=== PATIENT | female | born 1965 | race Caucasian/White ===

== ENCOUNTER 2017-06-21 15:43 | Emergency (ER) | payer OTHER ==
[2017-06-21] MEDS ORDERED: HYDROCODONE/ACETAMINOPHEN 5-325 MG TABLET PO ONE (18:18)
[2017-06-21 19:13] LABS: BILIRUBIN,URINE NEGATIVE (NEGATIVE); COLOR,URINE YELLOW; GLUCOSE, URINE NEGATIVE (NEGATIVE); KETONES,URINE NEGATIVE (NEGATIVE); LEUKOCYTE ESTERASE,URINE NEGATIVE (NEGATIVE); NITRITE,URINE NEGATIVE (NEGATIVE); PROTEIN,URINE NEGATIVE (NEGATIVE); URINE SPECIFIC GRAVITY 1.016; UROBILINOGEN,URINE NEGATIVE mg/dL (<2.0)
[2017-06-21 19:22] LABS: APPEARANCE,URINE CLEAR
[2017-06-21 19:29] VITALS: BP 130/84
--- NOTE | 2017-06-21 19:29 | ER Document Report ---
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 Patient denies any urinary complaints, denies any fevers or chills , denies any nausea vomiting or diarrhea, she denies any cauda equina concerns, she denies any red flag issues such as diabetes immunocompromised state IV drug use Patient does admit that she does a lot of bending and lifting of objects TRAVEL OUTSIDE OF THE [place] IN LAST 30 DAYS: No - HPI Onset: Last week Onset/Duration: Persistent, Worse Quality of pain: Achy Severity: Mild Pain Level: 1 Associated symptoms: Body/muscle aches Exacerbated by: Movement, Walking Relieved by: Denies Similar symptoms previously: No Recently seen / treated by doctor: No - Related Data Allergies/Adverse Reactions: Sulfa (Sulfonamide Antibiotics) Allergy (Verified 12/07/15 13:18) Past Medical History - Social History Smoking Status: Current Every Day Smoker Cigarette use (# per day): Yes Chew tobacco use (# tins/day): No Smoking Education Provided: No Frequency of alcohol use: Rare Drug Abuse: None Family History: Reviewed & Not Pertinent Patient has suicidal ideation: No Patient has homicidal ideation: No - Past Medical History Cardiac Medical History: Reports: Hx Hypercholesterolemia, Hx Hypertension Pulmonary Medical History: Reports: Hx Bronchitis, Hx COPD, Hx Pneumonia Renal/ Medical History: Denies: Hx Peritoneal Dialysis Psychiatric Medical History: Reports: Hx Depression Past Surgical History: Reports: Hx Appendectomy - 1978, Hx Section - 1995 - Immunizations Immunizations up to date: No Hx Diphtheria, Pertussis, Tetanus Vaccination: Yes Hx Pneumococcal Vaccination: 05/04/07 Review of Systems - Review of Systems Notes: REVIEW OF SYSTEMS: CONSTITUTIONAL : Denies fever, chills, or sweats. Denies recent illness. EENT: Denies eye, ear, throat, or mouth pain or symptoms. Denies nasal or sinus congestion or discharge. Denies throat, tongue, or mouth swelling or difficulty swallowing. CARDIOVASCULAR: Denies chest pain. Denies palpitations or racing or irregular heart beat. Denies ankle edema. RESPIRATORY: Denies cough, cold, or chest congestion. Denies shortness of breath, difficulty breathing, or wheezing. GASTROINTESTINAL: Admits to bilateral flank pain GENITOURINARY: Denies difficulty urinating, painful urination, burning, frequency, blood in urine, or discharge. FEMALE GENITOURINARY: Denies vaginal bleeding, heavy or abnormal periods, irregular periods. Denies vaginal discharge or odor. MUSCULOSKELETAL: Denies back or neck pain or stiffness. Denies joint pain or swelling. SKIN: Denies rash, lesions or sores. HEMATOLOGIC : Denies easy bruising or bleeding. LYMPHATIC: Denies swollen, enlarged glands. NEUROLOGICAL: Denies confusion or altered mental status. Denies passing out or loss of consciousness. Denies dizziness or lightheadedness. Denies headache. Denies weakness or paralysis or loss of use of either side. Denies problems with gait or speech. Denies sensory loss, numbness, or tingling. Denies seizures. PSYCHIATRIC: Denies anxiety or stress. Denies depression, suicidal ideation, or homicidal ideation. ALL OTHER SYSTEMS REVIEWED AND NEGATIVE. PHYSICAL EXAMINATION: GENERAL: Well-appearing, well-nourished and in no acute distress. HEAD: Atraumatic, normocephalic. EYES: Pupils equal round and reactive to light, extraocular movements intact, conjunctiva are normal. ENT: Nares patent, oropharynx clear without exudates. Moist mucous membranes. NECK: Normal range of motion, supple without lymphadenopathy LUNGS: Breath sounds clear to auscultation bilaterally and equal. No wheezes rales or rhonchi. HEART: Regular rate and rhythm without murmurs ABDOMEN: Soft, nontender, nondistended abdomen. No guarding, no rebound. No masses appreciated. Female : deferred Musculoskeletal: Normal range of motion, no pitting or edema. No cyanosis. Patient does have bilateral tenderness upon palpation, she has no midline tenderness, there is no signs of cauda equina concerns NEUROLOGICAL: Cranial nerves grossly intact. Normal speech, normal gait. Normal sensory, motor exams PSYCH: Normal mood, normal affect. SKIN: Warm, Dry, normal turgor, no rashes or lesions noted. Dictation was performed using [employer] recognition software Physical Exam - Vital signs Vitals: Temp Pulse Resp BP Pulse Ox 98.6 F 88 19 134/88 H 95 06/21/17 15:55 06/21/17 15:55 06/21/17 15:55 06/21/17 15:55 06/21/17 15:55 Course - Re-evaluation Re-evalutation: 06/21/17 21:08 Patient's evaluation is quite benign, she was initially given Toradol and noted minimal improvement, she was then given Maypearl which significantly improved her pain. Patient notes no acute infectious process in her urinalysis, I do not believe imaging is necessary at this time as she feels much better has normal vital signs and otherwise is afebrile. Very strict return precautions have been provided for the patient, she has no cauda equina concerns which would require further MRI imaging Work restriction has been provided for her After performing a Medical Screening Examination, I estimate there is LOW risk for EXPANDING OR RUPTURED ABDOMINAL AORTIC ANEURYSM, CAUDA EQUINA SYNDROME, EPIDURAL MASS LESION, or HERNIATED DISK CAUSING SEVERE SPINAL STENOSIS, thus I consider the discharge disposition reasonable. I have reevaluated this patient multiple times and no significant life threatening changes are noted. The patient and I have discussed the diagnosis and risks, and we agree with discharging home and close follow-up. We also discussed returning to the Emergency Department immediately if new or worsening symptoms occur with the understanding that symptoms and presentations can change. We have discussed the symptoms which are most concerning (e.g., saddle anesthesia, urinary or bowel incontinence or retention, changing or worsening pain) that necessitate immediate return. - Vital Signs Vital signs: Temp Pulse Resp BP Pulse Ox 98.6 F 67 20 130/84 H 99 06/21/17 15:55 06/21/17 19:28 06/21/17 19:28 06/21/17 19:28 06/21/17 19:28 - Laboratory Laboratory results interpreted by me: 06/21/17 17:51 Urine Blood SMALL H Discharge - Discharge Clinical Impression: Flank pain HTN (hypertension) Qualifiers: Hypertension type: essential hypertension Qualified Code(s): I10 - Essential ( primary) hypertension Condition: Stable Disposition: HOME, SELF-CARE Instructions: Low Back Pain ([facility]) Additional Instructions: Please allow for light duty no lifting greater than 5 pounds for 2 weeks Prescriptions: Hydrocodone/Acetaminophen [Maypearl 5-325 mg Tablet] 1 tab PO Q6 #15 tablet Naproxen Sodium 550 mg PO BID #20 tablet
== END 2017-06-21 19:29 | disposition home or self-care (01) ==
LOC: ER 15:43
DX: R10.9 Unspecified abdominal pain (principal); I10 Essential (primary) hypertension; J44.9 Chronic obstructive pulmonary disease, unspecified; F17.210 Nicotine dependence, cigarettes, uncomplicated; Z88.2 Allergy status to sulfonamides; Z90.49 Acquired absence of other specified parts of digestive tract
CPT/HCPCS: 81001; 99283

== ENCOUNTER 2018-02-02 16:54 | Inpatient (IN) | payer OTHER ==
[2018-02-02] MEDS ORDERED: IPRATROPIUM/ALBUTEROL 0.5-2.5 MG/3 ML AMPUL NEB ONE ×2 (17:59→20:40)
[2018-02-02] MEDS ORDERED: ALBUTEROL SULFATE 0.083% NEB 2.5 MG/3 ML AMPUL NEB ONE (18:00)
--- NOTE | 2018-02-02 18:02 | ER Document Report ---
ED Medical Screen (RME) - General Chief Complaint: Breathing Difficulty Stated Complaint: DIFFICULTY BREATHING Time Seen by Provider: 02/02/18 17:59 Mode of Arrival: Ambulatory Information source: Patient, Relative, [facility] Records Notes: 52-year-old female with COPD presents with complaint of shortness of breath, productive cough, dizziness. Patient states that she has been short of breath for 5 days. She has recently been started on doxycycline and prednisone. She states while walking into work today she became very short of breath and dizzy. Patient continues to use tobacco. I have greeted and performed a rapid initial assessment of this patient. A comprehensive ED assessment and evaluation of the patient, analysis of test results and completion of medical decision making process we will be contacted by additional ED providers. PHYSICAL EXAMINATION: Vital signs reviewed GENERAL: Well-appearing, well-nourished and in no acute distress. LUNGS: Diffuse wheezing, coarse breath sounds bilaterally Musculoskeletal: Normal range of motion NEUROLOGICAL: Normal speech, normal gait. PSYCH: Normal mood, normal affect. SKIN: Warm, Dry, normal turgor, no rashes or lesions noted. TRAVEL OUTSIDE OF THE [place] IN LAST 30 DAYS: No - HPI Onset: Other Onset/Duration: Persistent, Worse Quality of pain: Achy Associated Symptoms: Body/muscle aches, Chest pain, Chills, Cough (productive), Dizzy/lightheaded, Shortness of breath, Sweating Exacerbated by: Walking Relieved by: Denies Similar symptoms previously: Yes Recently seen / treated by doctor: Yes - Related Data Smoking: Cigarettes Frequency of alcohol use: None Drug Abuse: None Allergies/Adverse Reactions: Sulfa (Sulfonamide Antibiotics) Allergy (Verified 12/07/15 13:18) Past Medical History - Social History Chew tobacco use (# tins/day): No Frequency of alcohol use: None Drug Abuse: None - Past Medical History Cardiac Medical History: Reports: Hx Hypercholesterolemia, Hx Hypertension Pulmonary Medical History: Reports: Hx Bronchitis, Hx COPD, Hx Pneumonia Renal/ Medical History: Denies: Hx Peritoneal Dialysis Psychiatric Medical History: Reports: Hx Depression Past Surgical History: Reports: Hx Appendectomy - 1978, Hx Section - 1995 - Immunizations Immunizations up to date: No Hx Diphtheria, Pertussis, Tetanus Vaccination: Yes Physical Exam - Vital signs Vitals: Temp Pulse Resp BP Pulse Ox 98.1 F 71 22 H 134/79 H 95 02/02/18 16:59 02/02/18 16:59 02/02/18 16:59 02/02/18 16:59 02/02/18 16:59 Course - Vital Signs Vital signs: Temp Pulse Resp BP Pulse Ox 98.1 F 71 22 H 134/79 H 95 02/02/18 16:59 02/02/18 16:59 02/02/18 16:59 02/02/18 16:59 02/02/18 16:59
[2018-02-02 18:23] LABS: ABSOLUTE LYMPHOCYTES (AUTO) 1.7 10^3/uL (0.5-4.7); ABSOLUTE MONOCYTES (AUTO) 0.2 10^3/uL (0.1-1.4); ABSOLUTE NEUT (AUTO) 8.7 10^3/uL (1.7-8.2); BASOPHILS % (AUTO) 0.3 % (0-2); EOSINOPHILS % (AUTO) 0.1 % (0-6); HEMATOCRIT 42.1 % (36.0-47.0); LYMPHOCYTES % (AUTO) 16.3 % (13-45); MEAN CORPUSCULAR HEMOGLOBIN 29.2 pg (27.0-33.4); MEAN CORPUSCULAR HGB CONC 33.3 g/dL (32.0-36.0); MEAN CORPUSCULAR VOLUME 88 fl (80-97); MONOCYTES % (AUTO) 1.7 % (3-13); PLATELET COUNT 322 10^3/uL (150-450); RED CELL DISTRIBUTION WIDTH 14.4 % (11.5-14.0); SEGMENTED NEUTROPHILS % (AUTO) 81.6 % (42-78); TOTAL CELLS COUNTED % (AUTO) 100 %; WHITE BLOOD COUNT 10.7 10^3/uL (4.0-10.5)
[2018-02-02 18:47] LABS: ANION GAP 7 (5-19); BLOOD UREA NITROGEN 20 mg/dL (7-20); CALCIUM 9.3 mg/dL (8.4-10.2); CARBON DIOXIDE 27 mmol/L (22-30); CHLORIDE 108 mmol/L (98-107); GLUCOSE 121 mg/dL (75-110); POTASSIUM 4.5 mmol/L (3.6-5.0); SODIUM 142.1 mmol/L (137-145)
--- NOTE | 2018-02-02 20:02 | RADIOLOGY REPORT (SQ) ---
EXAM DESCRIPTION: CHEST 2 VIEWS COMPLETED DATE/TIME: 02/02/2018 7:45 pm REASON FOR STUDY: Cough, shortness of breath COMPARISON: 10/01/2015 EXAM PARAMETERS: NUMBER OF VIEWS: two views TECHNIQUE: Digital Frontal and Lateral radiographic views of the chest acquired. RADIATION DOSE: NA LIMITATIONS: none FINDINGS: LUNGS AND PLEURA: No opacities, masses or pneumothorax. No pleural effusion. MEDIASTINUM AND HILAR STRUCTURES: No masses or contour abnormalities. HEART AND VASCULAR STRUCTURES: Heart normal size. No evidence for failure. BONES: No acute findings. HARDWARE: None in the chest. OTHER: No other significant finding. IMPRESSION: NO ACUTE RADIOGRAPHIC FINDING IN THE CHEST. TECHNICAL DOCUMENTATION: JOB ID: [id number] [employer]- All Rights Reserved Reading location - IP/workstation name: [email or web address]
[2018-02-02] MEDS ORDERED: METHYLPREDNISOLONE INJ 125 MG/2 ML SDV IV ONE (20:40)
[2018-02-02 20:50] LABS: VENOUS BLOOD BASE EXCESS -1.5 mmol/L; VENOUS BLOOD HCO3 23.5 mmol/L (20-32); VENOUS BLOOD PH 7.38 (7.30-7.42)
--- NOTE | 2018-02-02 21:08 | ER Document Report ---
ED General - General Chief Complaint: Breathing Difficulty Stated Complaint: DIFFICULTY BREATHING Time Seen by Provider: 02/02/18 17:59 Mode of Arrival: Ambulatory Notes: Patient is a 52-year-old female with history of COPD that presents to the emergency department for chief complaint of wheezing, shortness of breath, and cough. Patient states she has been having these symptoms since this past Thursday, and have progressed since that time, she was seen by an urgent care who prescribed her doxycycline, albuterol, and prednisone, but she states she has not improved much since then, and feels more short of breath today so she decided to come to the emergency department to be evaluated. She states she has been having wheezing, and a nonproductive cough. Denies noting any chest pain, fevers, chills, night sweats, nausea, vomiting or abdominal pain. Past Medical History: COPD, hypertension Past Surgical History: Appendectomy, Social History: Admits to smoking cigarettes daily, denies alcohol or drug use Family History: Reviewed and noncontributory for presenting illness Allergies: Reviewed, see documented allergy list. REVIEW OF SYSTEMS: Unless otherwise stated in this report the patient's positive and negative responses for review of systems for constitutional, eyes, ENT, cardiovascular, respiratory, gastrointestinal, neurological, genitourinary, musculoskeletal, and integumentary systems and related systems to the presenting problem are either as stated in the HPI or were not pertinent or were negative for the symptoms and/or complaints related to the presenting medical problem. PHYSICAL EXAMINATION: Vital signs reviewed, nursing noted reviewed. GENERAL: Well-appearing, well-nourished and in no acute distress. HEAD: Atraumatic, normocephalic. EYES: Eyes appear normal, extraocular movements intact, sclera anicteric, conjunctiva are normal. ENT: nares patent, oropharynx clear without exudates. Moist mucous membranes. NECK: Normal range of motion, supple without lymphadenopathy LUNGS: Expiratory wheezing noted throughout all lung quinonez, as well as scattered rhonchi, no immediate respiratory distress, dry cough noted on exam HEART: Regular rate and rhythm without murmurs ABDOMEN: Soft, nontender, normoactive bowel sounds. No rebound, guarding, or rigidity. No masses appreciated. EXTREMITIES: Nontender, good range of motion, no pitting or edema. NEUROLOGICAL: No focal neurological deficits. Moves all extremities spontaneously Motor and sensory grossly intact on exam. PSYCH: Normal mood, normal affect. SKIN: Warm, Dry, normal turgor, no rashes or lesions noted on exposed skin TRAVEL OUTSIDE OF THE [place] IN LAST 30 DAYS: No - Related Data Allergies/Adverse Reactions: Sulfa (Sulfonamide Antibiotics) Allergy (Verified 12/07/15 13:18) Past Medical History - General Information source: Patient, Relative, [facility] - Social History Smoking Status: Current Every Day Smoker Chew tobacco use (# tins/day): No Frequency of alcohol use: None Drug Abuse: None Family History: Reviewed & Not Pertinent Patient has suicidal ideation: No Patient has homicidal ideation: No - Past Medical History Cardiac Medical History: Reports: Hx Hypercholesterolemia, Hx Hypertension Pulmonary Medical History: Reports: Hx Bronchitis, Hx COPD, Hx Pneumonia Renal/ Medical History: Denies: Hx Peritoneal Dialysis Psychiatric Medical History: Reports: Hx Depression Past Surgical History: Reports: Hx Appendectomy - 1978, Hx Section - 1995 - Immunizations Immunizations up to date: No Hx Diphtheria, Pertussis, Tetanus Vaccination: Yes Hx Pneumococcal Vaccination: 05/04/07 Physical Exam - Vital signs Vitals: Temp Pulse Resp BP Pulse Ox 98.1 F 71 22 H 134/79 H 95 02/02/18 16:59 02/02/18 16:59 02/02/18 16:59 02/02/18 16:59 02/02/18 16:59 Course - Re-evaluation Re-evalutation: Patient seen and examined vital signs reviewed. Laboratory data and imaging were ordered as appropriate for the patient's presenting symptoms and complaint, with consideration of any critical or life threatening conditions that may be associated with their obtained history and exam as noted above. Patient was treated with IV Solu-Medrol, DuoNeb breathing treatments, and IV azithromycin Results were reviewed when available and demonstrated negative chest x-ray, mild leukocytosis, likely from recent steroid use, chemistries unremarkable The patient was re-evaluated and was still having significant rhonchi, and actually noted to be borderline hypoxic 91% on room air she was placed on supplemental oxygen Evaluation was most consistent with acute exacerbation of COPD, that had failed outpatient management Results were discussed with the patient at this point after careful consideration I feel that that patient should be admitted to the hospital. This was discussed with the patient that it is in the best interest for their care to be admitted for further evaluation and management. Patient agreed with this plan of care. A call was placed to the admitted physician, Dr. Pa who graciously accepted the patient onto their service. *Note is created using voice recognition software and may contain spelling, syntax or grammatical errors. Laboratory 02/02/18 02/02/18 02/02/18 18:12 18:12 20:34 WBC 10.7 H RBC 4.80 Hgb 14.0 Hct 42.1 MCV 88 MCH 29.2 MCHC 33.3 RDW 14.4 H Plt Count 322 Seg Neutrophils % 81.6 H Lymphocytes % 16.3 Monocytes % 1.7 L Eosinophils % 0.1 Basophils % 0.3 Absolute Neutrophils 8.7 H Absolute Lymphocytes 1.7 Absolute Monocytes 0.2 Absolute Eosinophils 0.0 Absolute Basophils 0.0 VBG pH 7.38 VBG pCO2 41.0 VBG HCO3 23.5 VBG Base Excess -1.5 Sodium 142.1 Potassium 4.5 Chloride 108 H Carbon Dioxide 27 Anion Gap 7 BUN 20 Creatinine 0.73 Est GFR ( Amer) > 60 Est GFR (Non-Af Amer) > 60 Glucose 121 H Calcium 9.3 Chest X-Ray 02/02/18 18:00 IMPRESSION: NO ACUTE RADIOGRAPHIC FINDING IN THE CHEST. - Vital Signs Vital signs: Temp Pulse Resp BP Pulse Ox 98.1 F 71 22 H 134/79 H 95 02/02/18 16:59 02/02/18 16:59 02/02/18 16:59 02/02/18 16:59 02/02/18 16:59 - Laboratory Result Diagrams: 02/02/18 18:12 02/02/18 18:12 Laboratory results interpreted by me: 02/02/18 02/02/18 18:12 18:12 WBC 10.7 H RDW 14.4 H Seg Neutrophils % 81.6 H Monocytes % 1.7 L Absolute Neutrophils 8.7 H Chloride 108 H Glucose 121 H - EKG Interpretation by Me Additional EKG results interpreted by me: EKG demonstrates sinus rhythm with a ventricular rate of 71 bpm, left axis deviation, normal intervals, no evidence of acute ischemia in this EKG, compared with prior EKG from 10/01/2015 without significant change. Discharge - Discharge Clinical Impression: Acute exacerbation of chronic obstructive pulmonary disease (COPD) Condition: Stable Disposition: ADMITTED INPATIENT Admitting Provider: Hospitalist - Dr. Pa Unit Admitted: Telemetry
[2018-02-02] MEDS ORDERED: AZITHROMYCIN INJ 500 MG VIAL IV ONE ×2 (21:53→23:39)
[2018-02-02] MEDS: IPRATROPIUM/ALBUTEROL 0.5-2.5 MG/3 ML AMPUL NEB PRN (23:57)
[2018-02-03] MEDS ORDERED: NICOTINE 21 MG/24 HR PATCH.TD24 TD ONE (00:30)
[2018-02-03] MEDS ORDERED: AZITHROMYCIN 500 MG in DEXTROSE 5%-WATER 250 ML IV ONE (01:00)
[2018-02-03] MEDS ORDERED: AZITHROMYCIN INJ 500 MG VIAL IV PRN (01:47)
[2018-02-03] MEDS ORDERED: AZITHROMYCIN 500 MG in NORMAL SALINE 250 ML IV ONE (02:00)
[2018-02-03] MEDS: FAMOTIDINE 20 MG TABLET PO SCH ×3 (03:18→21:26)
[2018-02-03 05:24] LABS: HEMOGLOBIN 13.1 g/dL (12.0-15.5); MEAN CORPUSCULAR HEMOGLOBIN 29.4 pg (27.0-33.4); MEAN CORPUSCULAR HGB CONC 32.8 g/dL (32.0-36.0); MEAN CORPUSCULAR VOLUME 90 fl (80-97); PLATELET COUNT 301 10^3/uL (150-450); RED BLOOD COUNT 4.47 10^6/uL (3.72-5.28); RED CELL DISTRIBUTION WIDTH 14.3 % (11.5-14.0); WHITE BLOOD COUNT 11.6 10^3/uL (4.0-10.5)
[2018-02-03 05:26] LABS: ARTERIAL BLOOD BASE EXCESS -5.9 mmol/L; ARTERIAL BLOOD H2CO3 1.08 mmol/L (1.05-1.35); ARTERIAL BLOOD HCO3 19.1 mmol/L (20-24); ARTERIAL BLOOD O2 SATURATION 97.2 % (94-98); ARTERIAL BLOOD PCO2 35.9 mmHg (35-45); ARTERIAL BLOOD PH 7.34 (7.35-7.45); ARTERIAL BLOOD TOTAL CO2 20.2 mmol/L (21-25)
[2018-02-03 05:27] LABS: ARTERIAL BLOOD FIO2 3L
[2018-02-03 05:40] LABS: ANION GAP 12 (5-19); BLOOD UREA NITROGEN 18 mg/dL (7-20); CALCIUM 9.4 mg/dL (8.4-10.2); CARBON DIOXIDE 20 mmol/L (22-30); CHLORIDE 107 mmol/L (98-107); GLUCOSE 271 mg/dL (75-110); PHOSPHORUS 3.5 mg/dL (2.5-4.5); POTASSIUM 4.6 mmol/L (3.6-5.0); SODIUM 139.2 mmol/L (137-145)
--- NOTE | 2018-02-03 07:52 | PDOC H&P ---
History of Present Illness Admission Date/PCP: 02/02/18 21:23 Patient complains of: Shortness of breath History of Present Illness: MARILEE LAY is a 52 year old female presenting to the emergency department secondary to shortness of breath. States symptoms started on Thursday. Patient continues to smoke 1 pack of cigarettes per day daily, last cigarette yesterday when she was unable to finish. States she has been having tightness. Was seen in the outpatient setting in urgent care, started on antibiotics and given prednisone with no relief patient is to present to the ER for further workup and evaluation. Denies chest pain, denies oxygen at home. Past Medical History Cardiac Medical History: Reports: Hyperlipidema, Hypertension Pulmonary Medical History: Reports: Bronchitis, Chronic Obstructive Pulmonary Disease (COPD), Pneumonia Psychiatric Medical History: Reports: Depression Hematology: Reports: Anemia Past Surgical History Past Surgical History: Reports: Appendectomy - 1978, Section - 1995 Social History Information Source: Patient Smoking Status: Current Every Day Smoker Hx Recreational Drug Use: No Hx Prescription Drug Abuse: No Family History Family History: Reviewed & Not Pertinent Parental Family History Reviewed: No Children Family History Reviewed: No Sibling(s) Family History Reviewed.: No Medication/Allergy Home Medications: Telmisartan/Hydrochlorothiazid [Micardis HCT 40-12.5 mg Tablet] 1 each PO DAILY 04/13/11 Albuterol Sulfate [Ventolin HFA MDI 18 GM] 2 puff IH Q4HP PRN 11/10/12 Escitalopram Oxalate [Lexapro] 20 mg PO DAILY 02/02/18 Allergies/Adverse Reactions: Sulfa (Sulfonamide Antibiotics) Allergy (Verified 12/07/15 13:18) Review of Systems Constitutional: ABSENT: chills, fever(s), night sweats Nose, Mouth, and Throat: ABSENT: headache(s) Cardiovascular: ABSENT: chest pain, edema, palpitations Respiratory: PRESENT: cough, dyspnea Gastrointestinal: ABSENT: abdominal pain, diarrhea, nausea, vomiting Physical Exam Vital Signs: Temp Pulse Resp BP Pulse Ox 98.1 F 71 22 H 134/79 H 95 02/02/18 16:59 02/02/18 16:59 02/02/18 16:59 02/02/18 16:59 02/02/18 16:59 General appearance: PRESENT: no acute distress Head exam: PRESENT: atraumatic, normocephalic Eye exam: PRESENT: conjunctiva pink, EOMI, PERRLA. ABSENT: scleral icterus Mouth exam: PRESENT: moist, tongue midline Neck exam: ABSENT: carotid bruit, JVD, lymphadenopathy, thyromegaly Respiratory exam: PRESENT: decreased breath sounds, tachypnea, wheezes. ABSENT : chest wall tenderness, crackles, retraction Cardiovascular exam: PRESENT: RRR. ABSENT: diastolic murmur, rubs, systolic murmur GI/Abdominal exam: PRESENT: normal bowel sounds, soft. ABSENT: distended, guarding, mass, organolmegaly, rebound, tenderness Extremities exam: PRESENT: calf tenderness Neurological exam: PRESENT: alert, awake, oriented to person, oriented to place , oriented to time, oriented to situation, CN II-XII grossly intact. ABSENT: motor sensory deficit Psychiatric exam: PRESENT: appropriate affect, normal mood. ABSENT: homicidal ideation, suicidal ideation Skin exam: PRESENT: dry, intact, warm. ABSENT: cyanosis, rash Results Laboratory Results: 02/02/18 02/02/18 18:12 18:12 WBC 10.7 H Hgb 14.0 Sodium 142.1 Potassium 4.5 Chloride 108 H Carbon Dioxide 27 Creatinine 0.73 Impressions: Chest X-Ray 02/02/18 18:00 IMPRESSION: NO ACUTE RADIOGRAPHIC FINDING IN THE CHEST. Assessment & Plan - Diagnosis (1) Acute exacerbation of chronic obstructive pulmonary disease (COPD) Is this a current diagnosis for this admission?: Yes (2) Acute bronchitis Is this a current diagnosis for this admission?: Yes (3) Tobacco abuse Is this a current diagnosis for this admission?: Yes - Plan Summary Plan Summary: [facility] and [facility]. Continuous pulse ox monitoring overnight with supplemental oxygen as deemed necessary to maintain O2 sat between 88 and 92%. Prednisone given in emergency department, will continue Solu-Medrol 40 mg IV every 6 hours. Tylenol, ibuprofen as needed pain, fever. DuoNeb every 4 as needed. Will start patient on azithromycin for potential underlying acute bronchitis. Repeat CBC, BMP in a.m. Continue patient's home medications. We will continue to monitor closely and adjust accordingly. Smoking cessation highly encouraged. Nicotine patch provided.
[2018-02-03] MEDS: METHYLPREDNISOLONE INJ 40 MG/1 ML SDV IV SCH ×3 (09:24→21:27)
[2018-02-03] MEDS: NICOTINE 21 MG/24 HR PATCH.TD24 TD SCH (09:24)
[2018-02-03] MEDS: AZITHROMYCIN 250 MG TABLET PO SCH (09:24)
[2018-02-03] MEDS: ENOXAPARIN SODIUM INJ 40 MG/0.4 ML DISP.SYRIN SUBCUT SCH (09:25)
--- NOTE | 2018-02-03 11:12 | EKG REPORT ---
SEVERITY:- ABNORMAL ECG - SINUS RHYTHM LEFT VENTRICULAR HYPERTROPHY : Confirmed by: Schuyler Myles 03-Feb-2018 11:11:34
[2018-02-03] MEDS: IPRATROPIUM/ALBUTEROL 0.5-2.5 MG/3 ML AMPUL NEB PRN ×2 (16:12→19:44)
[2018-02-03] MEDS ORDERED: GLUCAGON,HUMAN RECOMB 1 MG INJ IM PRN (16:32)
[2018-02-03] MEDS ORDERED: DEXTROSE 40% GEL 15 GM TUBE PO PRN ×2 (16:32)
[2018-02-03] MEDS ORDERED: DEXTROSE 50%-WATER 25 GM/50 ML DISP.SYRIN IV PRN ×2 (16:32)
--- NOTE | 2018-02-03 16:40 | PDOC PROGRESS REPORT ---
Subjective Progress Note for:: 02/03/18 Subjective:: [age]-year-old female past medical history of hypertension, tobacco abuse, COPD, hyperlipidemia and anemia presented to ED on 02/03/2018 complaining of worsening shortness of breath and productive cough. Recently seen as outpatient and was given antibiotics and prednisone with no relief. Patient still smoking about 1 pack/day. Last smoke was 3 days ago. Patient states she is trying to quit. No acute events overnight. Patient still having shortness of breath with productive cough. Denies any fever, chills, nausea, vomiting, diarrhea, constipation or any urinary symptoms. Reason For Visit: DYSPNEA, COPD EXA Physical Exam Vital Signs: Temp Pulse Resp BP Pulse Ox 98.2 F 70 15 129/73 H 93 02/03/18 14:55 02/03/18 14:55 02/03/18 14:55 02/03/18 14:55 02/03/18 14:55 Pulse Oximeter Continuous Start: 02/02/18 21: 19 Freq: RTQ4 Status: Active Document 02/03/18 12:00 TPO (Rec: 02/03/18 12:01 TPO [email or web address]) Pulse Oximetry Assessment Oxygen Saturation (92-100) 95 Oxygen Flow Rate (L/min) 2 Oxygen Delivery Method Nasal Cannula Fraction of Inspired Oxygen (FIO2) 28 Equipment Usage Equipment in Use Continuous SpO2 Machine # 14 Intake & Output 02/02/18 02/03/18 02/04/18 06:59 06:59 06:59 Intake Total 638 250 Balance 638 250 Weight 94.6 kg General appearance: PRESENT: no acute distress, well-developed, well-nourished Head exam: PRESENT: atraumatic, normocephalic Eye exam: PRESENT: conjunctiva pink, EOMI, PERRLA. ABSENT: scleral icterus Ear exam: PRESENT: normal external ear exam Mouth exam: PRESENT: moist, tongue midline Neck exam: ABSENT: carotid bruit, JVD, lymphadenopathy, thyromegaly Respiratory exam: PRESENT: clear to auscultation carmen, crackles, decreased breath sounds, prolonged expiratory phas. ABSENT: rales, rhonchi, wheezes Cardiovascular exam: PRESENT: RRR. ABSENT: diastolic murmur, rubs, systolic murmur Pulses: PRESENT: normal dorsalis pedis pul Vascular exam: PRESENT: normal capillary refill GI/Abdominal exam: PRESENT: normal bowel sounds, soft. ABSENT: distended, guarding, mass, organolmegaly, rebound, tenderness Rectal exam: PRESENT: deferred Extremities exam: PRESENT: full ROM. ABSENT: calf tenderness, clubbing, pedal edema Neurological exam: PRESENT: alert, awake, oriented to person, oriented to place , oriented to time, oriented to situation, CN II-XII grossly intact. ABSENT: motor sensory deficit Psychiatric exam: PRESENT: appropriate affect, normal mood. ABSENT: homicidal ideation, suicidal ideation Skin exam: PRESENT: dry, intact, warm. ABSENT: cyanosis, rash Results Laboratory Results: 02/03/18 04:20 02/03/18 04:20 02/03/18 02/03/18 02/03/18 04:20 04:20 04:27 WBC 11.6 H RBC 4.47 Hgb 13.1 Hct 40.0 MCV 90 MCH 29.4 MCHC 32.8 RDW 14.3 H Plt Count 301 Carbonic Acid 1.08 HCO3/H2CO3 Ratio 17:1 ABG pH 7.34 L ABG pCO2 35.9 ABG pO2 98.0 ABG HCO3 19.1 L ABG O2 Saturation 97.2 ABG Base Excess -5.9 FiO2 3L Sodium 139.2 Potassium 4.6 Chloride 107 Carbon Dioxide 20 L Anion Gap 12 BUN 18 Creatinine 0.71 Est GFR ( Amer) > 60 Est GFR (Non-Af Amer) > 60 Glucose 271 H Calcium 9.4 Phosphorus 3.5 Magnesium 2.0 Impressions: Chest X-Ray 02/02/18 18:00 IMPRESSION: NO ACUTE RADIOGRAPHIC FINDING IN THE CHEST. Assessment & Plan - Diagnosis (1) Acute exacerbation of chronic obstructive pulmonary disease (COPD) Is this a current diagnosis for this admission?: Yes Plan: Azithromycin day 1/4 for possible bronchitis. Continue steroids and nebs. Follow-up cultures. (2) Tobacco abuse Is this a current diagnosis for this admission?: Yes Plan: Counseled patient extensively about the risk of continuing tobacco abuse. Patient stated that she is trying to quit. Will start on nicotine patch. (3) Diabetes Is this a current diagnosis for this admission?: Yes Plan: History of diabetes however no A1c available. Will order A1c. Continue on sliding scale insulin for the possible diabetes and also hyperglycemia caused by steroid treatment. As per review of the record patient also has hyperlipidemia however no lipid panel is available. Will order lipid panel if abnormal will start on statins. (4) Hypertension Is this a current diagnosis for this admission?: Yes Plan: Normotensive, euvolemic. Start low-dose lisinopril. Monitor vitals and adjust medication as needed. (5) Depression Is this a current diagnosis for this admission?: No Plan: Restart home meds.
[2018-02-04] MEDS: IPRATROPIUM/ALBUTEROL 0.5-2.5 MG/3 ML AMPUL NEB PRN ×2 (00:16→08:37)
[2018-02-04 05:05] LABS: ABSOLUTE LYMPHOCYTES (AUTO) 2.1 10^3/uL (0.5-4.7); ABSOLUTE MONOCYTES (AUTO) 0.5 10^3/uL (0.1-1.4); ABSOLUTE NEUT (AUTO) 15.2 10^3/uL (1.7-8.2); BASOPHILS % (AUTO) 0.2 % (0-2); HEMATOCRIT 39.4 % (36.0-47.0); LYMPHOCYTES % (AUTO) 11.8 % (13-45); MEAN CORPUSCULAR HEMOGLOBIN 28.8 pg (27.0-33.4); MEAN CORPUSCULAR VOLUME 87 fl (80-97); MONOCYTES % (AUTO) 2.7 % (3-13); PLATELET COUNT 302 10^3/uL (150-450); RED BLOOD COUNT 4.51 10^6/uL (3.72-5.28); RED CELL DISTRIBUTION WIDTH 14.4 % (11.5-14.0); SEGMENTED NEUTROPHILS % (AUTO) 85.3 % (42-78); TOTAL CELLS COUNTED % (AUTO) 100 %; WHITE BLOOD COUNT 17.8 10^3/uL (4.0-10.5)
[2018-02-04] MEDS: METHYLPREDNISOLONE INJ 40 MG/1 ML SDV IV SCH ×3 (05:24→21:30)
[2018-02-04 05:25] LABS: ALANINE AMINOTRANSFERASE 29 U/L (9-52); ALBUMIN 3.8 g/dL (3.5-5.0); ALKALINE PHOSPHATASE 101 U/L (38-126); ANION GAP 10 (5-19); ASPARTATE AMINO TRANSFERASE 11 U/L (14-36); BILIRUBIN,DIRECT 0.2 mg/dL (0.0-0.4); BILIRUBIN,TOTAL 0.2 mg/dL (0.2-1.3); BLOOD UREA NITROGEN 19 mg/dL (7-20); CALCIUM 9.6 mg/dL (8.4-10.2); CARBON DIOXIDE 23 mmol/L (22-30); CHLORIDE 109 mmol/L (98-107); CHOLESTEROL 198.55 mg/dL (0-200); GLUCOSE 161 mg/dL (75-110); POTASSIUM 4.6 mmol/L (3.6-5.0); SODIUM 142.2 mmol/L (137-145); TRIGLYCERIDES 113 mg/dL (<150)
[2018-02-04 05:36] LABS: DIRECT LDL 125 mg/dL (<100)
[2018-02-04] MEDS: AZITHROMYCIN 250 MG TABLET PO SCH (09:11)
[2018-02-04] MEDS: ESCITALOPRAM OXALATE 10 MG TABLET PO SCH (09:11)
[2018-02-04] MEDS: FAMOTIDINE 20 MG TABLET PO SCH ×2 (09:11→21:30)
[2018-02-04] MEDS: HYDROCHLOROTHIAZIDE 12.5 MG TABLET PO SCH (09:12)
[2018-02-04] MEDS: NICOTINE 21 MG/24 HR PATCH.TD24 TD SCH (09:12)
[2018-02-04] MEDS: LOSARTAN POTASSIUM 50 MG TABLET PO SCH (09:12)
[2018-02-04] MEDS: ENOXAPARIN SODIUM INJ 40 MG/0.4 ML DISP.SYRIN SUBCUT SCH (09:13)
[2018-02-04] MEDS ORDERED: LISINOPRIL 5 MG TABLET PO SCH (10:00)
[2018-02-04] MEDS ORDERED: (PENDING PHARMACY ID) (Telmisartan/Hydrochlorothiazid [Micardis Hct 40-12.5 Mg Tablet] 1 E PO SCH (10:00)
--- NOTE | 2018-02-04 11:57 | PDOC PROGRESS REPORT ---
Subjective Progress Note for:: 02/04/18 Subjective:: 52 year-old female past medical history of hypertension, tobacco abuse, COPD, hyperlipidemia and anemia presented to ED on 02/03/2018 complaining of worsening shortness of breath and productive cough. Recently seen as outpatient and was given antibiotics and prednisone with no relief. Patient still smoking about 1 pack/day. Last smoke was 3 days ago. Patient states she is trying to quit. No acute events overnight. Patient said that she feels than yesterday. She still having a productive nonbloody cough. Denies any fever, chills, nausea, vomiting, diarrhea, constipation or any urinary symptoms. Reason For Visit: DYSPNEA, COPD EXA Physical Exam Vital Signs: Temp Pulse Resp BP Pulse Ox 97.3 F 62 18 133/72 H 95 02/04/18 08:00 02/04/18 08:39 02/04/18 08:39 02/04/18 08:32 02/04/18 08:39 Pulse Oximeter Continuous Start: 02/02/18 21: 19 Freq: RTQ4 Status: Active Document 02/04/18 07:51 JDR (Rec: 02/04/18 07:52 JDR [email or web address]) Pulse Oximetry Assessment Oxygen Saturation (92-100) 94 Oxygen Delivery Method Room Air Fraction of Inspired Oxygen (FIO2) 21 Equipment Usage Equipment in Use Continuous SpO2 Machine # 14 Intake & Output 02/03/18 02/04/18 02/05/18 06:59 06:59 06:59 Intake Total 638 1463 Balance 638 1463 Weight 94.6 kg 95 kg General appearance: PRESENT: no acute distress, well-developed, well-nourished Head exam: PRESENT: atraumatic, normocephalic Eye exam: PRESENT: conjunctiva pink, EOMI, PERRLA. ABSENT: scleral icterus Ear exam: PRESENT: normal external ear exam Mouth exam: PRESENT: moist, tongue midline Neck exam: ABSENT: carotid bruit, JVD, lymphadenopathy, thyromegaly Respiratory exam: PRESENT: crackles, prolonged expiratory phas, wheezes. ABSENT : rales, rhonchi Cardiovascular exam: PRESENT: RRR. ABSENT: diastolic murmur, rubs, systolic murmur Pulses: PRESENT: normal dorsalis pedis pul Vascular exam: PRESENT: normal capillary refill GI/Abdominal exam: PRESENT: normal bowel sounds, soft. ABSENT: distended, guarding, mass, organolmegaly, rebound, tenderness Rectal exam: PRESENT: deferred Extremities exam: PRESENT: full ROM. ABSENT: calf tenderness, clubbing, pedal edema Neurological exam: PRESENT: alert, awake, oriented to person, oriented to place , oriented to time, oriented to situation, CN II-XII grossly intact. ABSENT: motor sensory deficit Psychiatric exam: PRESENT: appropriate affect, normal mood. ABSENT: homicidal ideation, suicidal ideation Skin exam: PRESENT: dry, intact, warm. ABSENT: cyanosis, rash Results Laboratory Results: 02/04/18 04:09 02/04/18 04:09 02/04/18 02/04/18 04:09 04:09 WBC 17.8 H RBC 4.51 Hgb 13.0 Hct 39.4 MCV 87 MCH 28.8 MCHC 33.0 RDW 14.4 H Plt Count 302 Seg Neutrophils % 85.3 H Lymphocytes % 11.8 L Monocytes % 2.7 L Eosinophils % 0.0 Basophils % 0.2 Absolute Neutrophils 15.2 H Absolute Lymphocytes 2.1 Absolute Monocytes 0.5 Absolute Eosinophils 0.0 Absolute Basophils 0.0 Sodium 142.2 Potassium 4.6 Chloride 109 H Carbon Dioxide 23 Anion Gap 10 BUN 19 Creatinine 0.61 Est GFR ( Amer) > 60 Est GFR (Non-Af Amer) > 60 Glucose 161 H Calcium 9.6 Total Bilirubin 0.2 AST 11 L ALT 29 Alkaline Phosphatase 101 Total Protein 7.0 Albumin 3.8 Triglycerides 113 Cholesterol 198.55 LDL Cholesterol Direct 125 H VLDL Cholesterol 23.0 HDL Cholesterol 50 Impressions: Chest X-Ray 02/02/18 18:00 IMPRESSION: NO ACUTE RADIOGRAPHIC FINDING IN THE CHEST. Assessment & Plan - Diagnosis (1) Acute exacerbation of chronic obstructive pulmonary disease (COPD) Is this a current diagnosis for this admission?: Yes Plan: Azithromycin day 2/4 for possible bronchitis. Continue steroids and nebs. Follow-up cultures. (2) Tobacco abuse Is this a current diagnosis for this admission?: Yes Plan: Counseled patient extensively about the risk of continuing tobacco abuse. Patient stated that she is trying to quit. Will start on nicotine patch. (3) Diabetes Is this a current diagnosis for this admission?: Yes Plan: Hemoglobin A1c 5.7. Patient states she was told that she is prediabetic and is not receiving any treatment for her diabetes. Blood sugar has been in the low 100s. Possibly due to steroid treatments. Continue on sliding scale insulin. (4) Hypertension Is this a current diagnosis for this admission?: Yes Plan: Euvolemic. Restart home meds. Monitor vitals (5) Depression Is this a current diagnosis for this admission?: No Plan: Restart home meds. (6) Dyslipidemia Is this a current diagnosis for this admission?: Yes Plan: ASCVD risk score is 18.1%. Will start high intensity statins. Recommend a follow-up LFTs with PCP. (7) Leukocytosis Is this a current diagnosis for this admission?: Yes Plan: This could likely be due to steroids for COPD exacerbation. Patient remains afebrile. CBC tomorrow
[2018-02-04] MEDS: INSULIN REG, HUMAN 100 UNIT/ML 3 ML VIAL (PYX) SUBCUT PRN (12:37)
[2018-02-05 04:52] LABS: MEAN CORPUSCULAR HEMOGLOBIN 29.3 pg (27.0-33.4); MEAN CORPUSCULAR HGB CONC 33.3 g/dL (32.0-36.0); MEAN CORPUSCULAR VOLUME 88 fl (80-97); PLATELET COUNT 339 10^3/uL (150-450); RED BLOOD COUNT 4.76 10^6/uL (3.72-5.28); RED CELL DISTRIBUTION WIDTH 14.3 % (11.5-14.0); WHITE BLOOD COUNT 23.4 10^3/uL (4.0-10.5)
[2018-02-05] MEDS: METHYLPREDNISOLONE INJ 40 MG/1 ML SDV IV SCH (05:11)
[2018-02-05 05:13] LABS: ALANINE AMINOTRANSFERASE 26 U/L (9-52); ALKALINE PHOSPHATASE 102 U/L (38-126); ANION GAP 12 (5-19); ASPARTATE AMINO TRANSFERASE 13 U/L (14-36); BILIRUBIN,DIRECT 0.3 mg/dL (0.0-0.4); BILIRUBIN,TOTAL 0.4 mg/dL (0.2-1.3); BLOOD UREA NITROGEN 26 mg/dL (7-20); CALCIUM 9.7 mg/dL (8.4-10.2); CARBON DIOXIDE 23 mmol/L (22-30); CHLORIDE 105 mmol/L (98-107); GLUCOSE 147 mg/dL (75-110); POTASSIUM 4.6 mmol/L (3.6-5.0); SODIUM 140.3 mmol/L (137-145); TOTAL PROTEIN 7.5 g/dL (6.3-8.2)
[2018-02-05 05:16] LABS: ABSOLUTE LYMPHOCYTES# (MANUAL) 2.3 10^3/uL (0.5-4.7); ABSOLUTE NEUTROPHILS# (MANUAL) 21.1 10^3/uL (1.7-8.2); BASOPHILS % (MANUAL) 0 % (0-2); EOSINOPHILS % (MANUAL) 0 % (0-6); LYMPHOCYTES % (MANUAL) 10 % (13-45); METAMYELOCYTES % (MANUAL) 1 % (0); MONOCYTES % (MANUAL) 0 % (3-13); SEGMENTED NEUTROPHILS % (MAN) 89 % (42-78); TOTAL CELLS COUNTED 100
[2018-02-05 05:17] LABS: PLATELET COMMENT ADEQUATE; RBC MORPHOLOGY COMMENT NORMO-CYTIC/CHROMIC; TOXIC GRANULATION 1+
[2018-02-05] MEDS ORDERED: GUAIFENESIN/CODEINE PHOS 100-10 MG/ 5 ML UDC PO PRN (08:27)
[2018-02-05] MEDS: HYDROCHLOROTHIAZIDE 12.5 MG TABLET PO SCH (09:33)
[2018-02-05] MEDS: PREDNISONE 20 MG TABLET PO SCH (09:33)
[2018-02-05] MEDS: FAMOTIDINE 20 MG TABLET PO SCH ×2 (09:33→21:06)
[2018-02-05] MEDS: ESCITALOPRAM OXALATE 10 MG TABLET PO SCH (09:33)
[2018-02-05] MEDS: NICOTINE 21 MG/24 HR PATCH.TD24 TD SCH (09:34)
[2018-02-05] MEDS: LEVOFLOXACIN 750 MG TABLET PO SCH (09:34)
[2018-02-05] MEDS: ENOXAPARIN SODIUM INJ 40 MG/0.4 ML DISP.SYRIN SUBCUT SCH (09:37)
[2018-02-05] MEDS: LOSARTAN POTASSIUM 50 MG TABLET PO SCH (09:38)
[2018-02-05] MEDS: IPRATROPIUM/ALBUTEROL 0.5-2.5 MG/3 ML AMPUL NEB PRN ×2 (10:06→16:13)
--- NOTE | 2018-02-05 10:36 | PDOC PROGRESS REPORT ---
Subjective Progress Note for:: 02/05/18 Subjective:: 52 year-old female past medical history of hypertension, tobacco abuse, COPD, hyperlipidemia and anemia presented to ED on 02/03/2018 complaining of worsening shortness of breath and productive cough. Recently seen as outpatient and was given antibiotics and prednisone with no relief. Patient still smoking about 1 pack/day. Last smoke was 3 days ago. Patient states she is trying to quit. No acute events overnight. However patient has not been able to sleep too much because of worsening productive nonbloody cough Denies any fever, chills, nausea, vomiting, diarrhea, constipation or any urinary symptoms. Reason For Visit: DYSPNEA, COPD EXA Physical Exam Vital Signs: Temp Pulse Resp BP Pulse Ox 98.1 F 78 16 120/59 L 92 02/05/18 08:00 02/05/18 10:06 02/05/18 10:06 02/05/18 08:00 02/05/18 10:06 Pulse Oximeter Continuous Start: 02/02/18 21: 19 Freq: RTQ4 Status: Active Document 02/05/18 10:06 [facility] (Rec: 02/05/18 10:10 [facility] [email or web address]) Pulse Oximetry Assessment Oxygen Saturation (92-100) 92 Oxygen Delivery Method Room Air Fraction of Inspired Oxygen (FIO2) 21 Equipment Usage Equipment in Use Continuous SpO2 Machine # 14 Intake & Output 02/04/18 02/05/18 02/06/18 06:59 06:59 06:59 Intake Total 1463 1212 Balance 1463 1212 Weight 95 kg 93.2 kg General appearance: PRESENT: no acute distress, well-developed, well-nourished Head exam: PRESENT: atraumatic, normocephalic Eye exam: PRESENT: conjunctiva pink, EOMI, PERRLA. ABSENT: scleral icterus Ear exam: PRESENT: normal external ear exam Mouth exam: PRESENT: moist, tongue midline Neck exam: ABSENT: carotid bruit, JVD, lymphadenopathy, thyromegaly Respiratory exam: PRESENT: crackles, decreased breath sounds, prolonged expiratory phas, wheezes. ABSENT: rales, rhonchi Cardiovascular exam: PRESENT: RRR. ABSENT: diastolic murmur, rubs, systolic murmur Pulses: PRESENT: normal dorsalis pedis pul Vascular exam: PRESENT: normal capillary refill GI/Abdominal exam: PRESENT: normal bowel sounds, soft. ABSENT: distended, guarding, mass, organolmegaly, rebound, tenderness Rectal exam: PRESENT: deferred Extremities exam: PRESENT: full ROM. ABSENT: calf tenderness, clubbing, pedal edema Neurological exam: PRESENT: alert, awake, oriented to person, oriented to place , oriented to time, oriented to situation, CN II-XII grossly intact. ABSENT: motor sensory deficit Psychiatric exam: PRESENT: appropriate affect, normal mood. ABSENT: homicidal ideation, suicidal ideation Skin exam: PRESENT: dry, intact, warm. ABSENT: cyanosis, rash Results Laboratory Results: 02/05/18 03:46 02/05/18 03:46 02/05/18 02/05/18 03:46 03:46 WBC 23.4 H RBC 4.76 Hgb 14.0 Hct 42.0 MCV 88 MCH 29.3 MCHC 33.3 RDW 14.3 H Plt Count 339 Seg Neutrophils % Not Reportable Lymphocytes % Not Reportable Monocytes % Not Reportable Eosinophils % Not Reportable Basophils % Not Reportable Absolute Neutrophils Not Reportable Absolute Lymphocytes Not Reportable Absolute Monocytes Not Reportable Absolute Eosinophils Not Reportable Absolute Basophils Not Reportable Sodium 140.3 Potassium 4.6 Chloride 105 Carbon Dioxide 23 Anion Gap 12 BUN 26 H Creatinine 0.71 Est GFR ( Amer) > 60 Est GFR (Non-Af Amer) > 60 Glucose 147 H Calcium 9.7 Total Bilirubin 0.4 AST 13 L ALT 26 Alkaline Phosphatase 102 Total Protein 7.5 Albumin 4.0 Impressions: Chest X-Ray 02/02/18 18:00 IMPRESSION: NO ACUTE RADIOGRAPHIC FINDING IN THE CHEST. Assessment & Plan - Diagnosis (1) Acute exacerbation of chronic obstructive pulmonary disease (COPD) Is this a current diagnosis for this admission?: Yes Plan: Switch azithromycin to levofloxacin 500 mg daily. Day 1 of levofloxacin. She received total of 2 days of azithromycin however symptoms and labs did not improve. Continue steroids and nebs. Follow-up cultures. (2) Tobacco abuse Is this a current diagnosis for this admission?: Yes Plan: Counseled patient extensively about the risk of continuing tobacco abuse. Patient stated that she is trying to quit. Will start on nicotine patch. (3) Diabetes Is this a current diagnosis for this admission?: Yes Plan: Hemoglobin A1c 5.7. Patient states she was told that she is prediabetic and is not receiving any treatment for her diabetes. Blood sugar has been in the low 100s. Possibly due to steroid treatments. Continue on sliding scale insulin. (4) Hypertension Is this a current diagnosis for this admission?: Yes Plan: Euvolemic. Restart home meds. Monitor vitals (5) Depression Is this a current diagnosis for this admission?: No Plan: Restart home meds. (6) Dyslipidemia Is this a current diagnosis for this admission?: Yes Plan: ASCVD risk score is 18.1%. Will start high intensity statins. Recommend a follow-up LFTs with PCP. (7) Leukocytosis Is this a current diagnosis for this admission?: Yes Plan: Worsening leukocytosis could possibly be due to steroid treatment for COPD exacerbation or an underlying infection. Switch azithromycin to levofloxacin. Blood and sputum cultures remain negative. (8) Acute bronchitis Qualifiers: Bronchitis organism: unspecified organism Qualified Code(s): J20.9 - Acute bronchitis, unspecified Is this a current diagnosis for this admission?: Yes Plan: Not improving. Switch azithromycin to levofloxacin. Started on codeine/ guaifenesin. (9) Obesity (BMI 30.0-34.9) Is this a current diagnosis for this admission?: Yes Plan: Diet and lifestyle modification.
[2018-02-05] MEDS: INSULIN REG, HUMAN 100 UNIT/ML 3 ML VIAL (PYX) SUBCUT PRN (11:38)
[2018-02-05 12:44] LABS: B INFLUENZA AG NEGATIVE (NEGATIVE)
[2018-02-05 12:45] LABS: A TYPE INFLUENZA AG NEGATIVE (NEGATIVE)
[2018-02-05] MEDS: SALMETEROL XINAFOATE DISKUS 50 MCG/1 DOSE 28 DOSE IH SCH (21:06)
[2018-02-06] MEDS: IPRATROPIUM/ALBUTEROL 0.5-2.5 MG/3 ML AMPUL NEB PRN ×2 (08:45→17:02)
[2018-02-06] MEDS ORDERED: INSULIN LISPRO 100 UNIT/ML 3 ML VIAL SUBCUT PRN (09:00)
[2018-02-06] MEDS ORDERED: DEXTROSE 40% GEL 15 GM TUBE PO PRN ×2 (09:00)
[2018-02-06] MEDS ORDERED: DEXTROSE 50%-WATER 25 GM/50 ML DISP.SYRIN IV PRN ×2 (09:00)
[2018-02-06] MEDS ORDERED: GLUCAGON,HUMAN RECOMB 1 MG INJ IM PRN (09:00)
--- NOTE | 2018-02-06 09:00 | PDOC PROGRESS REPORT ---
Subjective Progress Note for:: 02/06/18 Subjective:: 52 year-old female past medical history of hypertension, tobacco abuse, COPD, hyperlipidemia and anemia presented to ED on 02/03/2018 complaining of worsening shortness of breath and productive cough. Recently seen as outpatient and was given antibiotics and prednisone with no relief. Patient still smoking about 1 pack/day. Last smoke was 3 days ago. Patient states she is trying to quit. No acute events overnight. Upon my encounter patient is sitting in bed stating that she had a better night tonight. Her cough has improved. She denies any fever, chills, chest pain, shortness of breath, nausea, vomiting, abdominal pain , diarrhea, constipation or any urinary symptoms. Reason For Visit: DYSPNEA, COPD Physical Exam Vital Signs: Temp Pulse Resp BP Pulse Ox 97.8 F 73 16 120/62 94 02/06/18 08:00 02/06/18 08:00 02/06/18 08:00 02/06/18 08:00 02/06/18 08:00 Pulse Oximeter Continuous Start: 02/02/18 21: 19 Freq: RTQ4 Status: Complete Document 02/06/18 04:10 SFL (Rec: 02/06/18 04:11 SFL [email or web address]) Pulse Oximetry Assessment Oxygen Saturation (92-100) 95 Oxygen Delivery Method Room Air Fraction of Inspired Oxygen (FIO2) 21 Equipment Usage Equipment in Use Continuous SpO2 Machine # 14 Intake & Output 02/05/18 02/06/18 02/07/18 06:59 06:59 06:59 Intake Total 1723 Balance 1723 Weight 92.5 kg Results Impressions: Chest X-Ray 02/02/18 18:00 IMPRESSION: NO ACUTE RADIOGRAPHIC FINDING IN THE CHEST. Assessment & Plan - Diagnosis (1) Acute exacerbation of chronic obstructive pulmonary disease (COPD) Is this a current diagnosis for this admission?: Yes Plan: Switch azithromycin to levofloxacin 500 mg daily. Day day 2 of levofloxacin. She received total of 2 days of azithromycin however symptoms and labs did not improve. Continue steroids and nebs. Cultures negative so far. (2) Tobacco abuse Is this a current diagnosis for this admission?: Yes Plan: Counseled patient extensively about the risk of continuing tobacco abuse. Patient stated that she is trying to quit. Started on nicotine patch. (3) Diabetes Qualifiers: Diabetes mellitus type: type 2 Is this a current diagnosis for this admission?: Yes Plan: Hemoglobin A1c 5.7. Patient states she was told that she is prediabetic and is not receiving any treatment for her diabetes. Blood glucose levels between 100-200. This could possibly be due to steroids that she is receiving for her COPD exacerbation. Continue Accu-Chek and sliding scale. (4) Hypertension Is this a current diagnosis for this admission?: Yes Plan: Euvolemic and normotensive. Continue ARB. Monitor vitals. Adjust medications as needed. (5) Depression Is this a current diagnosis for this admission?: No Plan: Denies any SI/HI. Continue SSRIs. (6) Dyslipidemia Is this a current diagnosis for this admission?: Yes Plan: ASCVD risk score is 18.1%. Started on a high intensity statins. Recommend a follow-up LFTs with PCP. (7) Leukocytosis Is this a current diagnosis for this admission?: Yes Plan: Worsening leukocytosis could possibly be due to steroid treatment for COPD exacerbation or an underlying infection. Switch azithromycin to levofloxacin. Blood and sputum cultures remain negative. (8) Acute bronchitis Qualifiers: Bronchitis organism: unspecified organism Qualified Code(s): J20.9 - Acute bronchitis, unspecified Is this a current diagnosis for this admission?: Yes Plan: Improving. Switch azithromycin to levofloxacin. Started on codeine/ guaifenesin. (9) Obesity (BMI 30.0-34.9) Is this a current diagnosis for this admission?: Yes Plan: Diet and lifestyle modification.
[2018-02-06] MEDS: ENOXAPARIN SODIUM INJ 40 MG/0.4 ML DISP.SYRIN SUBCUT SCH (10:39)
[2018-02-06] MEDS: LOSARTAN POTASSIUM 50 MG TABLET PO SCH (10:40)
[2018-02-06] MEDS: ESCITALOPRAM OXALATE 10 MG TABLET PO SCH (10:40)
[2018-02-06] MEDS: HYDROCHLOROTHIAZIDE 12.5 MG TABLET PO SCH (10:40)
[2018-02-06] MEDS: PREDNISONE 20 MG TABLET PO SCH (10:41)
[2018-02-06] MEDS: NICOTINE 21 MG/24 HR PATCH.TD24 TD SCH (10:41)
[2018-02-06] MEDS: FAMOTIDINE 20 MG TABLET PO SCH ×2 (10:41→21:09)
[2018-02-06] MEDS: LEVOFLOXACIN 750 MG TABLET PO SCH (10:44)
[2018-02-06] MEDS: TIOTROPIUM BROMIDE DPI 5 CAP/KIT (18 MCG/CAP) IH SCH (10:44)
[2018-02-06] MEDS: SALMETEROL XINAFOATE DISKUS 50 MCG/1 DOSE 28 DOSE IH SCH ×2 (10:45→21:10)
[2018-02-06 11:15] LABS: HEMATOCRIT 41.3 % (36.0-47.0); HEMOGLOBIN 13.7 g/dL (12.0-15.5); MEAN CORPUSCULAR HEMOGLOBIN 28.6 pg (27.0-33.4); MEAN CORPUSCULAR HGB CONC 33.2 g/dL (32.0-36.0); MEAN CORPUSCULAR VOLUME 86 fl (80-97); PLATELET COUNT 306 10^3/uL (150-450); RED BLOOD COUNT 4.79 10^6/uL (3.72-5.28); RED CELL DISTRIBUTION WIDTH 14.2 % (11.5-14.0); WHITE BLOOD COUNT 21.8 10^3/uL (4.0-10.5)
[2018-02-06 11:29] LABS: ABSOLUTE LYMPHOCYTES# (MANUAL) 9.6 10^3/uL (0.5-4.7); ABSOLUTE MONOCYTES # (MANUAL) 0.4 10^3/uL (0.1-1.4); ABSOLUTE NEUTROPHILS# (MANUAL) 11.8 10^3/uL (1.7-8.2); BASOPHILS % (MANUAL) 0 % (0-2); EOSINOPHILS % (MANUAL) 0 % (0-6); LYMPHOCYTES % (MANUAL) 44 % (13-45); MONOCYTES % (MANUAL) 2 % (3-13); SEGMENTED NEUTROPHILS % (MAN) 54 % (42-78); TOTAL CELLS COUNTED 100
[2018-02-06 11:30] LABS: ANISOCYTOSIS SLIGHT; PLATELET CLUMPS PRESENT; PLATELET COMMENT ADEQUATE; TOXIC GRANULATION 1+
[2018-02-06 11:35] LABS: ALANINE AMINOTRANSFERASE 30 U/L (9-52); ALBUMIN 3.5 g/dL (3.5-5.0); ALKALINE PHOSPHATASE 87 U/L (38-126); ANION GAP 8 (5-19); ASPARTATE AMINO TRANSFERASE 18 U/L (14-36); BILIRUBIN,DIRECT 0.3 mg/dL (0.0-0.4); BILIRUBIN,TOTAL 0.3 mg/dL (0.2-1.3); BLOOD UREA NITROGEN 37 mg/dL (7-20); CALCIUM 9.5 mg/dL (8.4-10.2); CARBON DIOXIDE 27 mmol/L (22-30); CHLORIDE 105 mmol/L (98-107); GLUCOSE 87 mg/dL (75-110); POTASSIUM 3.5 mmol/L (3.6-5.0); SODIUM 139.6 mmol/L (137-145); TOTAL PROTEIN 6.7 g/dL (6.3-8.2)
[2018-02-06] MEDS ORDERED: ATORVASTATIN CALCIUM 40 MG TABLET PO SCH (22:00)
[2018-02-07 05:30] LABS: ABSOLUTE LYMPHOCYTES (AUTO) 7.2 10^3/uL (0.5-4.7); ABSOLUTE MONOCYTES (AUTO) 0.9 10^3/uL (0.1-1.4); BASOPHILS % (AUTO) 0.1 % (0-2); EOSINOPHILS % (AUTO) 0.2 % (0-6); HEMOGLOBIN 13.7 g/dL (12.0-15.5); LYMPHOCYTES % (AUTO) 37.4 % (13-45); MEAN CORPUSCULAR HEMOGLOBIN 29.2 pg (27.0-33.4); MEAN CORPUSCULAR HGB CONC 33.4 g/dL (32.0-36.0); MEAN CORPUSCULAR VOLUME 87 fl (80-97); MONOCYTES % (AUTO) 4.6 % (3-13); PLATELET COUNT 303 10^3/uL (150-450); RED BLOOD COUNT 4.69 10^6/uL (3.72-5.28); RED CELL DISTRIBUTION WIDTH 14.4 % (11.5-14.0); SEGMENTED NEUTROPHILS % (AUTO) 57.7 % (42-78); TOTAL CELLS COUNTED % (AUTO) 100 %; WHITE BLOOD COUNT 19.2 10^3/uL (4.0-10.5)
[2018-02-07 05:54] LABS: ALANINE AMINOTRANSFERASE 46 U/L (9-52); ALBUMIN 3.4 g/dL (3.5-5.0); ALKALINE PHOSPHATASE 97 U/L (38-126); ANION GAP 10 (5-19); ASPARTATE AMINO TRANSFERASE 19 U/L (14-36); BILIRUBIN,DIRECT 0.4 mg/dL (0.0-0.4); BILIRUBIN,TOTAL 0.4 mg/dL (0.2-1.3); BLOOD UREA NITROGEN 32 mg/dL (7-20); CALCIUM 9.1 mg/dL (8.4-10.2); CARBON DIOXIDE 25 mmol/L (22-30); CHLORIDE 103 mmol/L (98-107); GLUCOSE 142 mg/dL (75-110); POTASSIUM 3.7 mmol/L (3.6-5.0); SODIUM 137.9 mmol/L (137-145); TOTAL PROTEIN 6.4 g/dL (6.3-8.2)
[2018-02-07] MEDS: ESCITALOPRAM OXALATE 10 MG TABLET PO SCH (09:11)
[2018-02-07] MEDS: PREDNISONE 20 MG TABLET PO SCH (09:11)
[2018-02-07] MEDS: FAMOTIDINE 20 MG TABLET PO SCH (09:11)
[2018-02-07] MEDS: LEVOFLOXACIN 750 MG TABLET PO SCH (09:11)
[2018-02-07] MEDS: HYDROCHLOROTHIAZIDE 12.5 MG TABLET PO SCH (09:12)
[2018-02-07] MEDS: ENOXAPARIN SODIUM INJ 40 MG/0.4 ML DISP.SYRIN SUBCUT SCH (09:14)
[2018-02-07] MEDS: LOSARTAN POTASSIUM 50 MG TABLET PO SCH (09:14)
[2018-02-07] MEDS: NICOTINE 21 MG/24 HR PATCH.TD24 TD SCH (09:14)
[2018-02-07] MEDS: SALMETEROL XINAFOATE DISKUS 50 MCG/1 DOSE 28 DOSE IH SCH (09:15)
[2018-02-07] MEDS: TIOTROPIUM BROMIDE DPI 5 CAP/KIT (18 MCG/CAP) IH SCH (09:15)
--- NOTE | 2018-02-07 11:09 | PDOC DISCHARGE SUMMARY ---
General - Admit/Disc Date/PCP Admission Date/Primary Care Provider: 02/05/18 12:24 Discharge Date: 02/07/18 - Discharge Diagnosis (1) Acute exacerbation of chronic obstructive pulmonary disease (COPD) Is this a current diagnosis for this admission?: Yes (2) Pneumonia Is this a current diagnosis for this admission?: Yes (3) Tobacco abuse Is this a current diagnosis for this admission?: Yes (4) Diabetes Is this a current diagnosis for this admission?: Yes (5) Hypertension Is this a current diagnosis for this admission?: Yes (6) Depression Is this a current diagnosis for this admission?: No (7) Dyslipidemia Is this a current diagnosis for this admission?: Yes (8) Leukocytosis Is this a current diagnosis for this admission?: Yes (9) Acute bronchitis Is this a current diagnosis for this admission?: Yes (10) Obesity (BMI 30.0-34.9) Is this a current diagnosis for this admission?: Yes - Additional Information Discharge Diet: As Tolerated Discharge Activity: Activity As Tolerated Prescriptions: Atorvastatin Calcium [Lipitor 40 mg Tablet] 40 mg PO QHS 30 Days #30 tablet Famotidine [Pepcid 20 mg Tablet] 20 mg PO Q12 4 Days #80 tablet Guaifenesin/Codeine Phos [Robitussin-AC Liquid 5 ml Udcup] 5 ml PO QIDP PRN 3 Days #12 udc PRN Reason: Levofloxacin [Levaquin 750 mg Tablet] 750 mg PO DAILY 4 Days #4 tablet Prednisone [Deltasone 20 mg Tablet] 40 mg PO DAILY 3 Days #3 tablet Salmeterol Xinafoate [Serevent Diskus 50 Mcg/Dose 28 Dose/Diskus] 50 mcg IH Q12 30 Days #3 disk Tiotropium [place] [Spiriva Handihaler 5 Cap/Kit (18 Mcg/Cap)] 1 cap IH DAILY 30 Days #3 kit Home Medications: Telmisartan/Hydrochlorothiazid [Micardis HCT 40-12.5 mg Tablet] 1 each PO DAILY 04/13/11 Albuterol Sulfate [Ventolin HFA MDI 18 GM] 2 puff IH Q4HP PRN 11/10/12 Escitalopram Oxalate [Lexapro] 20 mg PO DAILY 02/02/18 Atorvastatin Calcium [Lipitor 40 mg Tablet] 40 mg PO QHS 30 Days #30 tablet 11/18 Famotidine [Pepcid 20 mg Tablet] 20 mg PO Q12 4 Days #80 tablet 02/07/18 Guaifenesin/Codeine Phos [Robitussin-AC Liquid 5 ml Udcup] 5 ml PO QIDP PRN 3 Days #12 udc 02/07/18 Levofloxacin [Levaquin 750 mg Tablet] 750 mg PO DAILY 4 Days #4 tablet 02/07/18 Prednisone [Deltasone 20 mg Tablet] 40 mg PO DAILY 3 Days #3 tablet 02/07/18 Salmeterol Xinafoate [Serevent Diskus 50 Mcg/Dose 28 Dose/Diskus] 50 mcg IH Q12 30 Days #3 disk 02/07/18 Tiotropium [place] [Spiriva Handihaler 5 Cap/Kit (18 Mcg/Cap)] 1 cap IH DAILY 30 Days #3 kit 02/07/18 History of Present Illness Patient complains of: Shortness of breath, productive cough. History of Present Illness: MARILEE LAY is a 52 year old female past medical history of hypertension, tobacco abuse, COPD, hyperlipidemia and anemia presented to ED on 02/03/2018 complaining of worsening shortness of breath and productive cough. Recently seen as outpatient and was given antibiotics and prednisone with no relief. Patient still smoking about 1 pack/day. Last smoke was 3 days ago. Patient states she is trying to quit. No acute events overnight. Upon my encounter patient is sitting in bed stating that she had a better night tonight. Her cough has improved. She denies any fever, chills, chest pain, shortness of breath, nausea, vomiting, abdominal pain , diarrhea, constipation or any urinary symptoms. Hospital Course Hospital Course: (1) Acute exacerbation of chronic obstructive pulmonary disease (COPD) Azithromycin was switched to levofloxacin. Antibiotics day 3/7. She received total of 2 days of azithromycin however symptoms and labs did not improve. Day 3/5 of nebs. Started on LABA/LAMA with as needed albuterol. (2) Pneumonia Community-acquired. Patient did not respond to azithromycin. Was switched to levofloxacin. To receive a total of 7 days. (3) Tobacco abuse Counseled patient extensively about the risk of continuing tobacco abuse. Patient stated that she is trying to quit. Started on nicotine patch. (4) Diabetes Hemoglobin A1c 5.7. Patient states she was told that she is prediabetic and is not receiving any treatment for her diabetes. Blood glucose levels between 100-200. This could possibly be due to steroids that she is receiving for her COPD exacerbation. Continue Accu-Chek and sliding scale. Outpatient PCP follow-up. (5) Hypertension Euvolemic and normotensive. Continue ARB. Restart home medication on discharge. Follow-up with PCP. (6) Depression Denies any SI/HI. Continue SSRIs. (7) Dyslipidemia ASCVD risk score is 18.1%. Started on a high intensity statins. Discharged on high intensity statins. Follow-up with PCP for evaluation of LFT. (8) Leukocytosis Improved. Likely be due to steroid treatment for COPD exacerbation or an underlying infection. Switch azithromycin to levofloxacin. Blood and sputum cultures remain negative. (9) Acute bronchiti/Pneumonia Improving. Switch azithromycin to levofloxacin. Started on codeine/ guaifenesin. (10) Obesity (BMI 30.0-34.9) Diet and lifestyle modification. Physical Exam Vital Signs: Temp Pulse Resp BP Pulse Ox 98.2 F 75 16 108/65 97 02/07/18 04:23 02/07/18 08:00 02/07/18 08:00 02/07/18 04:23 02/07/18 08:00 Pulse Oximeter Continuous Start: 02/02/18 21: 19 Freq: RTQ4 Status: Complete Document 02/06/18 04:10 SFL (Rec: 02/06/18 04:11 [facility] [id number]) Pulse Oximetry Assessment Oxygen Saturation (92-100) 95 Oxygen Delivery Method Room Air Fraction of Inspired Oxygen (FIO2) 21 Equipment Usage Equipment in Use Continuous SpO2 Machine # 14 Intake & Output 02/06/18 02/07/18 02/08/18 06:59 06:59 06:59 Intake Total 1723 1910 Balance 1723 1910 Weight 92.5 kg 92.5 kg General appearance: PRESENT: no acute distress, well-developed, well-nourished Head exam: PRESENT: atraumatic, normocephalic Eye exam: PRESENT: conjunctiva pink, EOMI, PERRLA. ABSENT: scleral icterus Ear exam: PRESENT: normal external ear exam Mouth exam: PRESENT: moist, tongue midline Neck exam: ABSENT: carotid bruit, JVD, lymphadenopathy, thyromegaly Respiratory exam: PRESENT: clear to auscultation carmen. ABSENT: rales, rhonchi, wheezes Cardiovascular exam: PRESENT: RRR. ABSENT: diastolic murmur, rubs, systolic murmur Pulses: PRESENT: normal dorsalis pedis pul Vascular exam: PRESENT: normal capillary refill GI/Abdominal exam: PRESENT: normal bowel sounds, soft. ABSENT: distended, guarding, mass, organolmegaly, rebound, tenderness Rectal exam: PRESENT: deferred Extremities exam: PRESENT: full ROM. ABSENT: calf tenderness, clubbing, pedal edema Neurological exam: PRESENT: alert, awake, oriented to person, oriented to place , oriented to time, oriented to situation, CN II-XII grossly intact. ABSENT: motor sensory deficit Psychiatric exam: PRESENT: appropriate affect, normal mood. ABSENT: homicidal ideation, suicidal ideation Skin exam: PRESENT: dry, intact, warm. ABSENT: cyanosis, rash Results Laboratory Results: 02/07/18 03:46 02/07/18 03:46 02/06/18 02/06/18 02/07/18 10:19 10:19 03:46 WBC 21.8 H 19.2 H RBC 4.79 4.69 Hgb 13.7 13.7 Hct 41.3 41.0 MCV 86 87 MCH 28.6 29.2 MCHC 33.2 33.4 RDW 14.2 H 14.4 H Plt Count 306 303 Seg Neutrophils % Not Reportable 57.7 Lymphocytes % Not Reportable 37.4 Monocytes % Not Reportable 4.6 Eosinophils % Not Reportable 0.2 Basophils % Not Reportable 0.1 Absolute Neutrophils Not Reportable 11.0 H Absolute Lymphocytes Not Reportable 7.2 H Absolute Monocytes Not Reportable 0.9 Absolute Eosinophils Not Reportable 0.0 Absolute Basophils Not Reportable 0.0 Sodium 139.6 Potassium 3.5 L Chloride 105 Carbon Dioxide 27 Anion Gap 8 BUN 37 H Creatinine 0.87 Est GFR ( Amer) > 60 Est GFR (Non-Af Amer) > 60 Glucose 87 Calcium 9.5 Total Bilirubin 0.3 AST 18 ALT 30 Alkaline Phosphatase 87 Total Protein 6.7 Albumin 3.5 02/07/18 03:46 WBC RBC Hgb Hct MCV MCH MCHC RDW Plt Count Seg Neutrophils % Lymphocytes % Monocytes % Eosinophils % Basophils % Absolute Neutrophils Absolute Lymphocytes Absolute Monocytes Absolute Eosinophils Absolute Basophils Sodium 137.9 Potassium 3.7 Chloride 103 Carbon Dioxide 25 Anion Gap 10 BUN 32 H Creatinine 0.77 Est GFR ( Amer) > 60 Est GFR (Non-Af Amer) > 60 Glucose 142 H Calcium 9.1 Total Bilirubin 0.4 AST 19 ALT 46 Alkaline Phosphatase 97 Total Protein 6.4 Albumin 3.4 L Impressions: Chest X-Ray 02/02/18 18:00 IMPRESSION: NO ACUTE RADIOGRAPHIC FINDING IN THE CHEST. Qualifiers - * PATIENT BEING DISCHARGED WITH ANY OF THE FOLLOWING DIAGNOSIS: No VTE patient discharged on overlapping Therapy?: Yes
[2018-02-07 13:58] VITALS: BP 106/77
== END 2018-02-07 14:04 | disposition home or self-care (01) | DRG 190 ==
LOC: ER 16:54 → INTOOBSV 21:23 → EH 21:23 → 5 22:58 → OBSVTOIN 02-05 12:24
PROVIDERS: ADMIT Family Medicine; ATTEND Family Medicine
DX: J44.1 Chronic obstructive pulmonary disease with (acute) exacerbation (principal); J18.9 Pneumonia, unspecified organism; J44.0 Chronic obstructive pulmonary disease with (acute) lower respiratory infection; J20.9 Acute bronchitis, unspecified; E11.9 Type 2 diabetes mellitus without complications; F32.9 Major depressive disorder, single episode, unspecified; E87.5 Hyperkalemia; E66.9 Obesity, unspecified; Z68.36 Body mass index [BMI] 36.0-36.9, adult; D64.9 Anemia, unspecified; D72.829 Elevated white blood cell count, unspecified; Z90.49 Acquired absence of other specified parts of digestive tract; I10 Essential (primary) hypertension; Z88.2 Allergy status to sulfonamides; F17.210 Nicotine dependence, cigarettes, uncomplicated; Z88.6 Allergy status to analgesic agent; Z23 Encounter for immunization
CPT/HCPCS: 36415; 36600; 71046; 80048; 80053; 80061; 82803; 82962; 83036; 83735; 84100; 85025; 85027; 87070; 87804; 87880; 90471; 90686; 93005; 93010; 94640; 94762; 94799; 96374; 99285; G0008; G0378; J0456; J1650; J1815; J2920; J2930; J3490; J7050; J7060; J7512; J7620

== ENCOUNTER 2019-06-01 03:25 | Emergency (ER) | payer SELFPAY ==
[2019-06-01] MEDS ORDERED: IPRATROPIUM/ALBUTEROL 0.5-2.5 MG/3 ML AMPUL NEB ONE (04:50)
[2019-06-01] MEDS ORDERED: METHYLPREDNISOLONE INJ 125 MG/2 ML SDV IV ONE (04:50)
[2019-06-01 04:51] LABS: ABSOLUTE BASOPHILS # (AUTO) 0.1 10^3/uL (0.0-0.2); ABSOLUTE EOSINOPHILS # (AUTO) 0.4 10^3/uL (0.0-0.6); ABSOLUTE LYMPHOCYTES (AUTO) 6.2 10^3/uL (0.5-4.7); ABSOLUTE MONOCYTES (AUTO) 0.9 10^3/uL (0.1-1.4); ABSOLUTE NEUT (AUTO) 8.1 10^3/uL (1.7-8.2); BASOPHILS % (AUTO) 0.9 % (0-2); EOSINOPHILS % (AUTO) 2.7 % (0-6); HEMATOCRIT 41.9 % (36.0-47.0); HEMOGLOBIN 13.8 g/dL (12.0-15.5); LYMPHOCYTES % (AUTO) 39.2 % (13-45); MEAN CORPUSCULAR HEMOGLOBIN 29.3 pg (27.0-33.4); MEAN CORPUSCULAR HGB CONC 32.9 g/dL (32.0-36.0); MEAN CORPUSCULAR VOLUME 89 fl (80-97); MONOCYTES % (AUTO) 5.9 % (3-13); PLATELET COUNT 392 10^3/uL (150-450); RED CELL DISTRIBUTION WIDTH 14.2 % (11.5-14.0); SEGMENTED NEUTROPHILS % (AUTO) 51.3 % (42-78); TOTAL CELLS COUNTED % (AUTO) 100 %; WHITE BLOOD COUNT 15.9 10^3/uL (4.0-10.5)
--- NOTE | 2019-06-01 05:01 | ER Document Report ---
ED General - General Chief Complaint: Shortness Of Breath Stated Complaint: SHORTNESS OF BREATH Time Seen by Provider: 06/01/19 04:36 Primary Care Provider: TASIA HA FNP [Primary Care Provider] - Follow up as needed TRAVEL OUTSIDE OF THE [place] IN LAST 30 DAYS: No - HPI Notes: Patient is a 53-year-old female who presents to the emergency department for evaluation. She comes in complaining of left-sided inferior rib and back pain that she describes as "lung spasms." She states she gets them occasionally, has done so for years. She states that this time it started last night at about 8:00 PM while working. She states that they are brought about by laughing. Nothing seems to make it go away. It usually lasts a few minutes. She states she feels mildly short of breath with some, but denies any other associated symptoms. Again she states she has had these pains intermittently for years. - Related Data Allergies/Adverse Reactions: Sulfa (Sulfonamide Antibiotics) Allergy (Verified 12/07/15 13:18) Home Medications: Telmisartan, alprazolam, albuterol inhaler Past Medical History - General Information source: Patient - Social History Smoking Status: Current Every Day Smoker Family History: Reviewed & Not Pertinent Patient has suicidal ideation: No Patient has homicidal ideation: No - Past Medical History Cardiac Medical History: Reports: Hx Hypercholesterolemia, Hx Hypertension Pulmonary Medical History: Reports: Hx Bronchitis, Hx COPD, Hx Pneumonia Renal/ Medical History: Denies: Hx Peritoneal Dialysis Psychiatric Medical History: Reports: Hx Depression Past Surgical History: Reports: Hx Appendectomy - 1978, Hx Section - 1995 - Immunizations Immunizations up to date: No Hx Diphtheria, Pertussis, Tetanus Vaccination: Yes Hx Pneumococcal Vaccination: 05/04/07 Review of Systems - Review of Systems Constitutional: No symptoms reported EENT: No symptoms reported Cardiovascular: See HPI Respiratory: See HPI Gastrointestinal: No symptoms reported Genitourinary: No symptoms reported Musculoskeletal: No symptoms reported Skin: No symptoms reported Neurological/Psychological: No symptoms reported Physical Exam - Vital signs Vitals: Temp Pulse Resp BP Pulse Ox 98.0 F 90 20 113/67 98 06/01/19 03:26 06/01/19 03:26 06/01/19 03:26 06/01/19 03:26 06/01/19 03:26 - Notes Notes: This is a 53-year-old female, obese, who appears her stated age in no acute d istress. Vital signs reviewed, please refer to chart. Head is normocephalic, atraumatic. Pupils equal round, reactive to light. Neck is supple without meningismus. Heart is regular rate and rhythm. Lungs reveal mild left-sided expiratory wheezes. Chest wall is nontender. Abdomen is soft, nontender, normoactive bowel sounds throughout. Extremities without cyanosis, clubbing. Posterior calves are nontender. Peripheral pulses are equal. Skin is warm and dry. Patient is awake, alert, neurological exam is nonfocal. Course - Re-evaluation Re-evalutation: 06/01/19 04:59 Patient presents emergency department for evaluation. She had laboratory investigations EKG, chest x-ray. Patient's, findings seem most consistent with COPD exacerbation on exam, and she states that this feels similar to what she has had in the past. The patient does, however, have an abnormal EKG. She has T wave inversions that are new when compared to prior studies. Certainly this could still be LVH with strain, but I would be concerned about ischemic changes. This was explained to the patient. Troponin was added to her blood work. Giovanna alexandre is unsure as to whether or not she has had a stress test. She states she has a family history of coronary artery disease, although she is unsure as to whether or not it is premature. I explained to the patient she needs to adjust several of her risk factors. She is obese. She is a smoker. She is hypertensive. She needs to discuss further testing with her primary care provider. At this point the patient is pain-free. Awaiting lab work, we will continue to monitor. 06/01/19 06:15 I went in to see the patient and she was having a "lung spasm" on the other side. It lasted approximately 2 minutes. She is tender to palpation. She is medicated here with Percocet. I explained her that her EKG is abnormal and would require follow-up, but I do not think it has anything to do with the symptoms that she is having here today. I will treat her for a COPD exacerbation. She is to follow-up with primary care this week. She is to return to the ED with worsening or new concerning symptoms of any sort. - Vital Signs Vital signs: Temp Pulse Resp BP Pulse Ox 98.0 F 90 13 109/68 100 06/01/19 03:26 06/01/19 03:26 06/01/19 05:01 06/01/19 05:01 06/01/19 05:01 - Laboratory Result Diagrams: 06/01/19 04:36 06/01/19 05:13 Laboratory results interpreted by me: 06/01/19 06/01/19 04:36 05:13 WBC 15.9 H RDW 14.2 H Absolute Lymphs (auto) 6.2 H BUN 27 H - Diagnostic Test Radiology reviewed: Image reviewed, Reports reviewed - EKG Interpretation by Me Additional EKG results interpreted by me: 06/01/19 05:01 Sinus mechanism with a rate of 80 bpm. Left axis deviation. LVH. T wave inversions in the anterolateral leads concerning for ischemia versus strain. These are new when compared to prior studies performed in 2018. Discharge - Discharge Clinical Impression: COPD exacerbation, Chest wall pain, Abnormal EKG Condition: Stable Disposition: HOME, SELF-CARE Instructions: Anti-Inflammatory Medication ([facility]), Chest Wall Pain ([facility]), Chronic Obstructive Lung Disease ([facility]) Additional Instructions: Take prednisone as directed until gone. Follow-up with your primary care pr ovider. As discussed today, your EKG was abnormal. You should discuss a stress test with your primary care provider. If you develop worsening or new concerning symptoms of any sort, please return immediately to the emergency department for evaluation. Referrals: TASIA HA FNP [Primary Care Provider] - Follow up as needed
[2019-06-01 05:05] LABS: APPEARANCE,URINE CLEAR; BILIRUBIN,URINE NEGATIVE (NEGATIVE); COLOR,URINE YELLOW; GLUCOSE, URINE NEGATIVE (NEGATIVE); KETONES,URINE NEGATIVE (NEGATIVE); LEUKOCYTE ESTERASE,URINE NEGATIVE (NEGATIVE); NITRITE,URINE NEGATIVE (NEGATIVE); PROTEIN,URINE NEGATIVE (NEGATIVE); URINE SPECIFIC GRAVITY 1.013; UROBILINOGEN,URINE NEGATIVE mg/dL (<2.0)
--- NOTE | 2019-06-01 05:29 | RADIOLOGY REPORT (SQ) ---
EXAM DESCRIPTION: XR CHEST 1 VIEW COMPLETED DATE/TME: 06/01/2019 04:03 CLINICAL HISTORY: 53 years Female, sob COMPARISON:Feb 02 2018 NUMBER OF VIEWS/TECHNIQUE: 1/AP FINDINGS: Adequate lung volume, clear parenchyma, normal cardiac silhouette, and intact bony thorax. IMPRESSION: No acute cardiopulmonary findings.
[2019-06-01 05:47] LABS: ALBUMIN 4.1 g/dL (3.5-5.0); ALKALINE PHOSPHATASE 108 U/L (38-126); ANION GAP 10 (5-19); ASPARTATE AMINO TRANSFERASE 21 U/L (14-36); BILIRUBIN,TOTAL 0.4 mg/dL (0.2-1.3); BLOOD UREA NITROGEN 27 mg/dL (7-20); CALCIUM 9.7 mg/dL (8.4-10.2); CARBON DIOXIDE 24 mmol/L (22-30); CHLORIDE 104 mmol/L (98-107); GLUCOSE 100 mg/dL (75-110); POTASSIUM 4.3 mmol/L (3.6-5.0); TOTAL PROTEIN 7.1 g/dL (6.3-8.2)
[2019-06-01] MEDS ORDERED: OXYCODONE-ACETAMINOPHEN 5-325 MG TABLET PO ONE (06:14)
[2019-06-01 06:36] VITALS: BP 121/86
--- NOTE | 2019-06-01 14:27 | EKG REPORT ---
SEVERITY:- ABNORMAL ECG - SINUS RHYTHM LVH WITH SECONDARY REPOLARIZATION ABNORMALITY : Confirmed by: Schuyler Myles 01-Jun-2019 14:26:29
== END 2019-06-01 06:36 | disposition home or self-care (01) ==
LOC: ER 03:25
DX: J44.1 Chronic obstructive pulmonary disease with (acute) exacerbation (principal); R07.89 Other chest pain; R94.31 Abnormal electrocardiogram [ECG] [EKG]; R06.02 Shortness of breath; R07.81 Pleurodynia; M54.9 Dorsalgia, unspecified; F17.200 Nicotine dependence, unspecified, uncomplicated; I10 Essential (primary) hypertension
CPT/HCPCS: 93005; 94640; 99285; 96374; 36415; 85025; 80053; 81001; 84484; 71045; 93010; J2930; J7620

== ENCOUNTER 2019-07-20 11:05 | Emergency (ER) | payer SELFPAY ==
[2019-07-20 11:11] VITALS: BP 142/73
--- NOTE | 2019-07-20 11:30 | ER Document Report ---
ED Medical Screen (RME) - General Chief Complaint: Cold Symptoms Stated Complaint: COLD SYMPTOMS Time Seen by Provider: 07/20/19 11:23 Primary Care Provider: TASIA HA FNP [NURSE PRACTITIONER] - Follow up as needed Mode of Arrival: Ambulatory Information source: Patient Notes: 53-year-old female presents to ED for cough cold congestion runny nose worse at night. She does have a history of asthma and COPD. She states she has not had a fever since Thursday when this all started. She does have a history of elevated blood pressure cholesterol and borderline diabetes. He states she supposed to go see a herbarium curator for an abnormal EKG. At this time she is here for her respiratory symptoms. TRAVEL OUTSIDE OF THE [place] 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 Allergies/Adverse Reactions: Sulfa (Sulfonamide Antibiotics) Allergy (Verified 07/20/19 11:19) Past Medical History - General Information source: Patient - Social History Cigarette use (# per day): Yes Frequency of alcohol use: None Drug Abuse: None Lives with: Friend Family history: Reviewed & Not Pertinent - Past Medical History Cardiac Medical History: Reports: Hx Hypercholesterolemia, Hx Hypertension Pulmonary Medical History: Reports: Hx Bronchitis, Hx COPD, Hx Pneumonia Neurological Medical History: Reports: None Endocrine Medical History: Reports: Hx Diabetes Mellitus Type 2 Renal/ Medical History: Reports: None. Denies: Hx Peritoneal Dialysis Malignancy Medical History: Reports: None GI Medical History: Reports: None Musculoskeltal Medical History: Reports None Skin Medical History: Reports None Psychiatric Medical History: Reports: Hx Anxiety, Hx Depression Traumatic Medical History: Reports: None Infectious Medical History: Reports: None Past Surgical History: Reports: Hx Appendectomy - 1978, Hx Section - 1995 - Immunizations Immunizations up to date: No Hx Diphtheria, Pertussis, Tetanus Vaccination: No History of Pneumococcal Vaccine: No History of Influenza Vaccine for 02/2019 - 07/2019 Season: Yes Review of Systems - Review of Systems Constitutional: No symptoms reported, Recent illness. denies: Fever EENT: Nose congestion, Nose discharge, Sinus pressure, Sinus discharge Cardiovascular: No symptoms reported Respiratory: Cough Gastrointestinal: No symptoms reported Genitourinary: No symptoms reported Female Genitourinary: No symptoms reported Musculoskeletal: No symptoms reported Skin: No symptoms reported Hematologic/Lymphatic: No symptoms reported Neurological/Psychological: No symptoms reported -: Yes All other systems reviewed and negative Physical Exam - Vital signs Vitals: Temp Pulse Resp BP Pulse Ox 98.3 F 66 16 142/73 H 98 07/20/19 11:06 07/20/19 11:06 07/20/19 11:06 07/20/19 11:06 07/20/19 11:06 Interpretation: Normal - General General appearance: Appears well, Alert - HEENT Head: Normocephalic, Atraumatic Eyes: Normal Pupils: PERRL Ears: Normal External canal: Normal Tympanic membrane: Normal Sinus: Normal Nasal: Purulent discharge, Swelling Mouth/Lips: Normal Mucous membranes: Normal Pharynx: Post nasal drainage Neck: Normal - Respiratory Respiratory status: No respiratory distress Chest status: Nontender Breath sounds: Normal. No: Decreased air movement, Nonproductive cough, Productive cough, Rales, Rhonchi, Stridor, Wheezing Chest palpation: Normal - Cardiovascular Rhythm: Regular Heart sounds: Normal auscultation Murmur: No - Abdominal Inspection: Normal Distension: No distension Bowel sounds: Normal Tenderness: Nontender Organomegaly: No organomegaly - Back Back: Normal, Nontender - Extremities General upper extremity: Normal inspection, Nontender, Normal color, Normal ROM, Normal temperature General lower extremity: Normal inspection, Nontender, Normal color, Normal ROM, Normal temperature, Normal weight bearing. No: Bucky's sign - Neurological Neuro grossly intact: Yes Cognition: Normal Orientation: AAOx4 Katina Coma Scale Eye Opening: Spontaneous [place] Coma Scale Verbal: Oriented [place] Coma Scale Motor: Obeys Commands Katina Coma Scale Total: 15 Speech: Normal Motor strength normal: LUE, RUE, LLE, RLE Sensory: Normal - Psychological Associated symptoms: Normal affect, Normal mood - Skin Skin Temperature: Warm Skin Moisture: Dry Skin Color: Normal Course - Re-evaluation Re-evalutation: 07/20/19 12:01 After performing a Medical Screening Examination, I estimate there is LOW risk for ACUTE CORONARY SYNDROME, RESPIRATORY FAILURE, SEPSIS OR MENINGITIS, thus I consider the discharge disposition reasonable. I have reevaluated this patient multiple times and no significant life threatening changes are noted. The patient and I have discussed the diagnosis and risks, and we agree with discharging home with close follow-up. We also discussed returning to the Emergency Department immediately if new or worsening symptoms occur. We have discussed the symptoms which are most concerning (e.g., changing or worsening pain, trouble swallowing or breathing, neck stiffness, fever) that necessitate immediate return. - Vital Signs Vital signs: Temp Pulse Resp BP Pulse Ox 98.3 F 66 16 142/73 H 98 07/20/19 11:06 07/20/19 11:06 07/20/19 11:06 07/20/19 11:06 07/20/19 11:06 Doctor's Discharge - Discharge Clinical Impression: URI (upper respiratory infection) Qualifiers: URI type: unspecified viral URI Qualified Code(s): J06.9 - Acute upper respiratory infection, unspecified Condition: Stable Disposition: HOME, SELF-CARE Additional Instructions: UPPER RESPIRATORY ILLNESS: You have a viral infection of the respiratory passages -- a "cold." This common infection causes nasal congestion, drainage, and often sore throat and cough. It is highly contagious. The disease usually lasts about 10 to 14 days. There is no "cure" for the viral infection -- it must run its course. If there is a complication, such as bacterial infection in the nose, sinuses, middle ear, or bronchial tubes, antibiotics may be required. The antibiotics won't affect the virus. Drink plenty of fluids. A humidifier may help. An expectorant medication or decongestant may make you more comfortable. Use acetaminophen or ibuprofen for fever or aches. See the doctor if fever persists over two days, if there is any significant worsening of your symptoms, or if you simply fail to improve as expected. You have been recommended treatment with Flonase which is [id number] 1 spray each nostril twice a day. You could also use salt soda solution gargles. These will help to remove the drainage from the back your throat. Chloraseptic spray was [id number] that will also help with your sore throat. Salt and soda solution gargle 1 quart of water 1 tablespoon of salt 1 teaspoon of baking soda Mixed 3 ingredients together and boil for 1 minute Placed in a covered quart jar Use 1/2 ounce of cold solution to gargle 3 times a day USE OF ACETAMINOPHEN (Tylenol): Acetaminophen may be taken for pain relief or fever control. It's much safer than aspirin, offering a wider range of "safe" dosages. It is safe during . Some brand names are Tylenol, Panadol, Datril, Anacin 3, Tempra, and Liquiprin. Acetaminophen can be repeated every four hours. The following are maximum recommended dosages: >89 pounds or adults 650 mg to 900 mg Acetaminophen can be repeated every four hours. Maximum dose not to exceed 4000 mg a day. SMOKING: If you smoke, you should stop smoking. The tar and chemicals in cigarette smoke are harmful. Smoking has been shown to cause: emphysema chronic bronchitis lung cancer mouth and throat cancer stomach and pancreas cancer premature aging defects In addition, smoking increases ear and lung infections in children of smokers. FOLLOW-UP CARE: If you have been referred to a physician for follow-up care, call the physicians office for an appointment as you were instructed or within the next two days. If you experience worsening or a significant change in your symptoms, notify the physician immediately or return to the Emergency Department at any time for re-evaluation. Forms: Elevated Blood Pressure, Smoking Cessation Education, Return to Work Referrals: TASIA HA FNP [NURSE PRACTITIONER] - Follow up as needed
== END 2019-07-20 11:35 | disposition home or self-care (01) ==
LOC: ER 11:05
DX: J06.9 Acute upper respiratory infection, unspecified (principal); B97.89 Other viral agents as the cause of diseases classified elsewhere; R05 Cough; J34.89 Other specified disorders of nose and nasal sinuses; R09.81 Nasal congestion; R09.82 Postnasal drip; J44.9 Chronic obstructive pulmonary disease, unspecified; I10 Essential (primary) hypertension; E11.9 Type 2 diabetes mellitus without complications; F17.210 Nicotine dependence, cigarettes, uncomplicated; Z88.0 Allergy status to penicillin
CPT/HCPCS: 99283

== ENCOUNTER 2019-09-21 09:18 | Emergency (ER) | payer SELFPAY ==
[2019-09-21 09:25] VITALS: BP 146/70
[2019-09-21] MEDS ORDERED: DEXAMETHASONE SOD PHOS INJ 10 MG/1 ML VIAL IM ONE (09:34)
[2019-09-21] MEDS ORDERED: HYDROXYZINE PAMOATE 25 MG CAPSULE PO ONE (09:34)
[2019-09-21] MEDS ORDERED: FAMOTIDINE 20 MG TABLET PO ONE (09:34)
--- NOTE | 2019-09-21 09:40 | ER Document Report ---
HPI - HPI Patient complains to provider of: Itchy rash Time Seen by Provider: 09/21/19 09:25 Onset: Yesterday Quality of pain: No pain Pain Level: Denies Context: 53-year-old female with history of COPD and diabetes presents emergency department with complaints of itchy rash under her breast and in her groin since yesterday. Patient reports that she had trouble sleeping all night woke up and vomited twice. Denies vomiting today reports she ate without any problems today. Reports she had a hard time sleeping even though she took Benadryl right before bedtime because she was itching so much. Patient took 3 Benadryl this morning at 630. She denies new medications new lotions. Patient does admit to new laundry detergent recently. Patient was evaluated by her primary care yesterday and prescribed steroids. Patient denies fever shortness of breath chest pain. She denies trouble breathing. Reports she is swallowing without problems. Associated Symptoms: None Exacerbated by: Denies Relieved by: Denies Similar symptoms previously: No Recently seen / treated by doctor: No - REPRODUCTIVE Reproductive: DENIES: : Past Medical History - General Information source: Patient - Social History Smoking Status: Current Every Day Smoker Chew tobacco use (# tins/day): No Frequency of alcohol use: None Drug Abuse: None Occupation: [employer] Lives with: Family Family History: Reviewed & Not Pertinent Patient has suicidal ideation: No Patient has homicidal ideation: No - Past Medical History Cardiac Medical History: Reports: Hx Hypercholesterolemia, Hx Hypertension Pulmonary Medical History: Reports: Hx Bronchitis, Hx COPD, Hx Pneumonia Endocrine Medical History: Reports: Hx Diabetes Mellitus Type 2 Renal/ Medical History: Denies: Hx Peritoneal Dialysis Psychiatric Medical History: Reports: Hx Anxiety, Hx Depression Past Surgical History: Reports: Hx Appendectomy - 1978, Hx Section - 1995 - Immunizations Immunizations up to date: No Hx Diphtheria, Pertussis, Tetanus Vaccination: No Hx Pneumococcal Vaccination: 05/04/07 Vertical Provider Document - CONSTITUTIONAL Agree With Documented VS: Yes Exam Limitations: No Limitations General Appearance: WD/WN, No Apparent Distress - INFECTION CONTROL TRAVEL OUTSIDE OF THE [place] IN LAST 30 DAYS: No - HEENT HEENT: Atraumatic, Normal ENT Exam, Normocephalic. negative: Conjuctival Injection, Pharyngeal Exudate, Pharyngeal Erythema, Tympanic Membrane Red, Tympanic Membrane Bulging - good airway, clear voice - NECK Neck: Normal Inspection, Supple. negative: Lymphadenopathy-Left, Lymphadenopathy-Right - RESPIRATORY Respiratory: Breath Sounds Normal, No Respiratory Distress - CARDIOVASCULAR Cardiovascular: Regular Rate, Regular Rhythm - GI/ABDOMEN Gastrointestinal: Abdomen Soft, Abdomen Non-Tender - BACK Back: Normal Inspection - MUSCULOSKELETAL/EXTREMETIES Musculoskeletal/Extremeties: MAEW, FROM - NEURO Level of Consciousness: Awake, Alert, Appropriate Motor/Sensory: No Motor Deficit - DERM Integumentary: Warm, Dry, Rash - hives under breast, patient scratching groin area (not visualized in PIT) no visualized open wounds or sores, no hives to upper extremities or face. Course - Re-evaluation Re-evalutation: 09/21/19 09:50 53-year-old female with history of diabetes COPD presents with complaints of itchy rash under her breast and her groin area since yesterday. She denied any new medications or lotions. She did admit to just recently switching her laundry detergent. Patient also reports she works at the [employer] but reports she did not work recently. She is speaking with a clear voice, respiratory rate even and unlabored. Patient apparently saw her primary care yesterday afternoon and was treated with steroids. Patient was prescribed Vistaril and Pepcid today by this provider. She was instructed on cutting her nails protecting her skin cool baths. She was also instructed to follow back up with her primary care provider within 3 days for recheck. She was also instructed to return immediately to the emergency department for difficulty swallowing difficulty breathing. She verbalized understanding to all instructions. - Vital Signs Vital signs: Temp Pulse Resp BP Pulse Ox 97.9 F 73 20 146/70 H 97 09/21/19 09:27 09/21/19 09:23 09/21/19 09:23 09/21/19 09:23 09/21/19 09:23 Discharge - Discharge Clinical Impression: Hives Allergic reaction Qualifiers: Encounter type: initial encounter Qualified Code(s): T78.40XA - Allergy, unspecified, initial encounter Condition: Stable Disposition: HOME, SELF-CARE Instructions: Acute Allergic Reaction ([facility]), Antihistamines ([facility]) Additional Instructions: *You have been treated for allergic reaction, hives *Take medication as prescribed (Stop the benadry, take the vistaril instead) *Avoid itching. Cut your nails, avoid hot showers take a cool shower instead, apply cool packs *Follow up with your primary care provider within the next 3 days for recheck *Return to the emergency department immediately for worsening hives, difficulty breathing, difficulty swallowing, concerns Monitor your blood pressure. Your blood pressure was elevated today. This may be because you were anxious, in pain or because you need medication. It is important to follow up with your primary care provider for full evaluation. Prescriptions: Famotidine [Pepcid 20 mg Tablet] 20 mg PO BID #12 tablet Hydroxyzine Pamoate [Vistaril 25 mg Capsule] 25 mg PO TID #15 capsule Forms: Elevated Blood Pressure, Return to Work
== END 2019-09-21 09:47 | disposition home or self-care (01) ==
LOC: ER 09:18
DX: T78.40XA Allergy, unspecified, initial encounter (principal); L50.9 Urticaria, unspecified; R21 Rash and other nonspecific skin eruption; R13.10 Dysphagia, unspecified; F17.200 Nicotine dependence, unspecified, uncomplicated; I10 Essential (primary) hypertension; J44.9 Chronic obstructive pulmonary disease, unspecified; E11.9 Type 2 diabetes mellitus without complications
CPT/HCPCS: 99282

== ENCOUNTER 2020-02-11 00:52 | Emergency (ER) | payer OTHER ==
--- NOTE | 2020-02-11 01:01 | ER Document Report ---
ED Medical Screen (RME) - General Chief Complaint: Cough Stated Complaint: COUGH/CONGESTION/SORE THROAT/HAS HISTORY OF COPD Primary Care Provider: SARAH GRACIA NP [Primary Care Provider] - Follow up as needed Notes: Patient is a 54-year-old white female with a history of COPD who presents the emergency department with chief complaint of dry cough for the past 2 days. She states that she was recently around her grandchildren who were sick with a "respiratory virus". She states they did not have COVID-19. She denies any other recent travel. States the cough is mostly dry but occasionally brings up a yellow sputum. She denies any other associated symptoms. No fever, nausea, vomiting with diarrhea, chills, night sweats, chest pain or shortness of breath. She admits to some recent episodes of posttussive emesis. I have treated and performed a rapid initial assessment of this patient. A comprehensive ED assessment and evaluation of the patient, analysis of test results and completion of medical decision making process will be conducted by additional ED providers. PHYSICAL EXAMINATION: GENERAL: Well-appearing, well-nourished and in no acute distress. A&Ox4. Answers questions appropriately. TRAVEL OUTSIDE OF THE [place] IN LAST 30 DAYS: No - Related Data Allergies/Adverse Reactions: Sulfa (Sulfonamide Antibiotics) Allergy (Verified 02/11/20 00:59) Past Medical History - Social History Family history: Reviewed & Not Pertinent - Past Medical History Cardiac Medical History: Reports: Hx Hypercholesterolemia, Hx Hypertension Pulmonary Medical History: Reports: Hx Bronchitis, Hx COPD, Hx Pneumonia Endocrine Medical History: Reports: Hx Diabetes Mellitus Type 2 Renal/ Medical History: Denies: Hx Peritoneal Dialysis Psychiatric Medical History: Reports: Hx Anxiety, Hx Depression Past Surgical History: Reports: Hx Appendectomy - 1978, Hx Section - 1995 - Immunizations Immunizations up to date: No Hx Diphtheria, Pertussis, Tetanus Vaccination: No Doctor's Discharge - Discharge Referrals: SARAH GRACIA NP [Primary Care Provider] - Follow up as needed
[2020-02-11] MEDS ORDERED: BENZONATATE 100 MG CAPSULE PO ONE (01:48)
[2020-02-11] MEDS ORDERED: IPRATROPIUM/ALBUTEROL 0.5-2.5 MG/3 ML AMPUL NEB ONE (01:49)
[2020-02-11] MEDS ORDERED: PREDNISONE 20 MG TABLET PO ONE (01:49)
--- NOTE | 2020-02-11 01:52 | ER Document Report ---
ED General - General Chief Complaint: Cough Stated Complaint: COUGH/CONGESTION/SORE THROAT/HAS HISTORY OF COPD Time Seen by Provider: 02/11/20 01:29 Primary Care Provider: SARAH GRACIA NP [Primary Care Provider] - Follow up as needed TRAVEL OUTSIDE OF THE [place] IN LAST 30 DAYS: No - HPI Context: This is a 54-year-old female presenting to the emergency department for evalu ation of cough, congestion and sore throat. Patient states the symptoms have been present for the past 2 days. Patient states that she visited her grandchildren earlier this week and they were sick with some type of "respiratory virus" but also states that they did not have COVID-19. Patient denies recent travel. Patient denies loss of sense of taste or smell. Patient denies history of COVID infection or known exposure to other persons positive for COVID 19 or persons under suspicion for COVID-19. Patient denies fever and chills. Patient states she has a sore throat from coughing. Patient rates the pain as a 2 on a scale of 0-5. Patient states the pain is exacerbated by coughing and nothing really alleviates the throat pain. Patient states that while her cough is mostly dry occasionally she will cough up some yellow sputum. Patient states that she has had a couple of episodes of post tussive emesis from coughing so hard. Patient has a history of COPD and states that she smokes half a pack of basic light cigarettes daily. This MD inquired about whether the patient has considered quitting smoking. Patient states that the patches are too expensive. This MD counseled the patient that she could get the generic brand of nicotine patches which were not as expensive as the brand-name ones. Associated symptoms: Other - See HPI Exacerbated by: Other - See HPI Relieved by: Other - See HPI - Related Data Allergies/Adverse Reactions: Sulfa (Sulfonamide Antibiotics) Allergy (Verified 02/11/20 00:59) Past Medical History - General Information source: Patient - Social History Smoking Status: Current Every Day Smoker Cigarette use (# per day): Yes - Half pack per day Smoking Education Provided: Yes - This MD counseled the patient about approaches to quitting smoking Frequency of alcohol use: None Drug Abuse: None Family History: Reviewed & Not Pertinent Patient has suicidal ideation: No Patient has homicidal ideation: No - Past Medical History Cardiac Medical History: Reports: Hx Hypercholesterolemia, Hx Hypertension Pulmonary Medical History: Reports: Hx Bronchitis, Hx COPD, Hx Pneumonia Endocrine Medical History: Reports: Hx Diabetes Mellitus Type 2 Renal/ Medical History: Denies: Hx Peritoneal Dialysis Psychiatric Medical History: Reports: Hx Anxiety, Hx Depression Past Surgical History: Reports: Hx Appendectomy - 1978, Hx Section - 1995 - Immunizations Immunizations up to date: No Hx Diphtheria, Pertussis, Tetanus Vaccination: No Hx Pneumococcal Vaccination: 05/04/07 Physical Exam - Vital signs Vitals: Temp 97.7 F 02/11/20 01:01 Course - Re-evaluation Re-evalutation: 02/11/20 03:15 Patient states she is feeling better after her DuoNeb treatments and Tessalon Perles and prednisone. Results of ED MSE discussed with patient. All questions were answered prior to discharge. Emergency signs and symptoms, reasons to return to the emergency department discussed with patient. Precautions for persons under investigation for COVID discussed with patient. - Vital Signs Vital signs: Temp Pulse Resp BP Pulse Ox 97.7 F 88 23 H 149/82 H 97 02/11/20 01:05 02/11/20 01:05 02/11/20 01:05 02/11/20 01:05 02/11/20 01:05 - Diagnostic Test Radiology reviewed: Reports reviewed Discharge - Discharge Clinical Impression: Tobacco abuse, Tobacco abuse counseling, COPD exacerbation, Person under investigation for COVID-19 Condition: Stable Disposition: HOME, SELF-CARE Instructions: COVID-19 Guidance for Persons Under Investigation Additional Instructions: Return to the Emergency Department without delay if any worse. HOME CARE INSTRUCTIONS & INFORMATION: Thank you for choosing us for your medical needs. We hope you're satisfied with the care you received. After you leave, you must properly care for your problem and, at the same time, observe its progress. Any condition can change. Some illnesses can change rapidly over hours or days. If your condition worsens, return to the Emergency Department or see your physician promptly. ABOUT YOUR X-RAYS AND EKG'S: If you had an EKG or X-rays taken, they have been read by the Emergency Physician. The X-rays and EKG's will also be read by a Radiologist or Floor Cleaner within 24 hours. If discrepancies are noted, you will be notified by telephone. Please be certain the ED has a correct telephone number & address where you can be reached. Also, realize that some fractures or abnormalities do not show up on initial X-rays. If your symptoms continue, see your physician. ABOUT YOUR LABORATORY TEST: If you had laboratory tests, the results have been reviewed by the Emergency Physician. Some test results (for example cultures) may not be available for several days. You will be contacted if any test result shows you need additional treatment. Please be certain the ED has a correct telephone number and address where you can be reached. ABOUT YOUR MEDICATIONS: You will receive instructions on how to take your medicine on the prescription label you receive. Additional information may be provided by the Pharmacy. If you have questions afterwards, call the ED for clarification or further instructions. Some prescribed medications may cause drowsiness. Do not perform tasks such as driving a car or operating machinery without consulting your Pharmacist. If you feel you need a refill of pain medication, your condition will need re-evaluation. Please do not call for a refill of any medication. ABOUT YOUR SIGNATURE: Signature of this document acknowledges to followin. Understanding that you received emergency treatment and that you may be released before al medical problems are known or treated. Please be certain the ED has a correct phone number & address where you can be reached. 2. Acknowledgement that you will arrange for follow-up care as recommended. 3. Authorization for the Emergency Physician to provide information to your follow-up Physician in order to maximize your care. AT ANY TIME, IF YOUR SYMPTOMS CHANGE SIGNIFICANTLY OR WORSEN OR YOU DEVELOP NEW SYMPTOMS, RETURN TO THE EMERGENCY DEPARTMENT IMMEDIATELY FOR RE-EVALUATION. OUR GOAL IS TO PROVIDE EXCELLENT MEDICAL CARE! WE HOPE THAT WE HAVE MET YOUR EXPECTATIONS DURING YOUR EMERGENCY DEPARTMENT VISIT AND THAT YOU FEEL YOU HAVE RECEIVED EXCELLENT CARE! Chronic Obstructive Lung Disease You have chronic obstructive lung disease (COPD). The symptoms come from emphysema (damage to small airways, with trapping of air in large sacks in the lung) and chronic bronchitis (repeated infection and damage to larger airways). The cause is almost always cigarette smoking, although dust exposure, asthma, and infections contribute. You should avoid fumes, dust, and smoke (especially tobacco smoke). Your condition will flare from time to time. There is no cure, but the symptoms can be treated. Bronchodilators (asthma medicine) are often helpful. Antibiotics help when infection is present. When shortness of breath is severe, we may prescribe cortisone medication. If medicine doesn't help enough, we can arrange for you to have an oxygen tank at home. Notify your doctor at once if sputum becomes thick, foul, or bloody, if you develop a fever or chest pain, or if your shortness of breath worsens. 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
--- NOTE | 2020-02-11 02:17 | RADIOLOGY REPORT (SQ) ---
EXAM DESCRIPTION: XR CHEST 1 VIEW COMPLETED DATE/TME: 02/11/2020 00:59 CLINICAL HISTORY: 54 years, Female, cough COMPARISON: X-ray chest 06/01/2019 NUMBER OF VIEWS: TECHNIQUE: LIMITATIONS: None. FINDINGS: No evidence of pulmonary infiltrate or pleural effusion. The heart and mediastinum are unremarkable. Pulmonary vascularity appears normal. There is no significant change, as compared with the prior x-ray(s). IMPRESSION: No acute finding. copyright 2010 [employer]- All Rights Reserved
[2020-02-11 04:08] VITALS: BP 150/84
== END 2020-02-11 04:08 | disposition home or self-care (01) ==
LOC: ER 00:52
DX: J44.1 Chronic obstructive pulmonary disease with (acute) exacerbation (principal); F17.210 Nicotine dependence, cigarettes, uncomplicated; Z71.6 Tobacco abuse counseling; R05 Cough; J02.9 Acute pharyngitis, unspecified; Z20.828 Contact with and (suspected) exposure to other viral communicable diseases; R11.10 Vomiting, unspecified; I10 Essential (primary) hypertension; E11.9 Type 2 diabetes mellitus without complications; Z88.2 Allergy status to sulfonamides
CPT/HCPCS: 94640; 99284; 87635; 71045; J7512; C9803